=== PATIENT | female | born 1955 | race Caucasian/White ===

== ENCOUNTER → 2017-04-03 10:11 | Outpatient (CLI) | payer MEDICAID ==
[2014-04-19 14:42] VITALS: BMI 39.0
[~2017-04-03 10:11] MED LIST: BUPROPION XL300 MG PO; COUMADIN5 MG PO; CYCLOBENZAPRINE10 MG PO; CYMBALTA60 MG PO; LEVOXYL50 MCG PO; LINZESS145 MCG PO; NORVASC5 MG PO; PRAVACHOL40 MG PO; TOPROL XL100 MG PO; TRAZODONE HCL50 MG PO
== END | disposition home or self-care (01) ==
LOC: D.MRI 10:11
DX: R41.3 Other amnesia (principal)

== ENCOUNTER 2017-04-07 11:44 | Outpatient (CLI) | payer MEDICAID ==
[2014-04-19 14:42] VITALS: BMI 39.0
== END 2017-04-07 11:59 ==
LOC: D.MAMMO 11:44
DX: Z12.31 Encounter for screening mammogram for malignant neoplasm of breast (principal)

== ENCOUNTER 2017-12-24 17:22 | Observation (INO) | payer OTHER ==
[~2017-12-24] VITALS: Ht 154.9 cm; Wt 95.3 kg
--- NOTE | ~2017-12-24 | OP ---
PATIENT NAME: BUFFY ROMERO MEDICAL RECORD: [id number] :59 LOCATION:D.M2 D.2114 ADMISSION DATE:12/24/17 SURGEON: JULIA FISHER MD DATE OF OPERATION: 12/25/2017 PROCEDURES: 1. PTCA stent RCA. 2. Selective coronary angiography. 3. Left ventriculogram. 4. Left heart catheterization. INDICATION: Angina and coronary artery disease. PROCEDURE IN DETAIL: After informed consent was obtained and after detailed explanation of risks, benefits as well as alternative therapies, the patient elected to proceed with angiogram and angioplasty. The right femoral area was prepped and draped in normal sterile fashion. The right femoral artery was cannulated via modified Seldinger technique with placement of a 7-Slovak sheath. All catheters exchanged through this sheath. FINDINGS: Left ventriculogram was performed in standard 30-degree FLORES view, reveals good cardiac wall motion, ejection fraction estimated 60%. SELECTIVE CORONARY ANGIOGRAPHY: 1. Left main is with no significant angiographic disease. 2. Left anterior descending has mild irregularities, no flow-limiting stenosis. 3. The left circumflex has 70-80% stenosis in the mid distal vessel. 4. The right coronary has a chronic total occlusion 100%. PTCA STENT OF THE RIGHT CORONARY ARTERY: We were able to traverse her chronic total occlusion with a Choice PT extra support wire, ballooned this with a 1.5 and 2.5 balloon. Stenting was undertaken going from distal to proximal, 2.25 x 38, and 2.5 x 38, 3.0 x 22 all [place] stents. Result was 0% residual stenosis. OVERALL IMPRESSION: Successful percutaneous transluminal coronary angioplasty stent of the right coronary artery going from 100% chronic total occlusion to 0% residual stenosis. TRANSINT:[id number] Voice Confirmation ID: [id number] DOCUMENT ID: [id number] JULIA FISHER MD at 1202 CC: [id number] DICTATION DATE: 12/25/17913 SHOEMAKER APPRENTICE: 12/25/17 1017 DIS IN 12/25/17 [place] [address]
--- NOTE | ~2017-12-24 | HP ---
PATIENT: BUFFY MASON MEDICAL RECORD: [id number] ACCOUNT: [id number] LOCATION:.[facility]2114 : 59 ADMISSION DATE: 12/24/17 HISTORY AND PHYSICAL EXAMINATION ADMITTING DIAGNOSES: 1. Chest pain. 2. Family history of coronary artery disease. 3. Hypertension. 4. Hyperlipidemia. HISTORY OF PRESENT ILLNESS: Ms. Mason presents with on and off pain all day, worsening, very typical pain compatible with angina, dull and aching pressure, squeezing sensation throughout the anterior chest. Her EKG is with no acute changes. She continues to have the episodes of chest discomfort. REVIEW OF SYSTEMS: The patient reports easy bruising but reports no swollen glands. The patient reports no fever, no night sweats, no significant weight gain, no significant weight loss. No significant exercise tolerance. The patient reports no dry eyes, no irritation, no vision change. Patient reports no difficulty hearing and no ear pain. Patient reports no frequent nose bleeds or nose and sinus problems. Patient reports on arm pain on exertion. No shortness of breath while lying down. No history of heart murmur. Patient reports no cough, no wheezing or coughing up blood. Patient reports no abdominal pain, no vomiting. Normal appetite. No diarrhea and not vomiting blood. No nausea and no constipation. Patient reports no incontinence. No difficulty urinating. No hematuria. No increased frequency. Patient reports no muscle aches. No weakness, no arthralgias, no back pain. No swelling of the extremities. Patient reports no abnormal mole, no jaundice, no rashes. Reports no loss of consciousness. No weakness and no numbness. No seizures, dizziness, or headaches. The patient reports no depression, no sleep disturbance, feeling safe in a relationship and no alcohol abuse. Patient reports on fatigue. Reports no runny nose or sinus pressure. No itching, no hives, and no frequent sneezing. PHYSICAL EXAMINATION: GENERAL APPEARANCE: Well-nourished, well-developed, appears stated age. Level of distress, comfortable. PSYCHIATRIC: Mental status, alert, normal affect. Orientation, oriented to time, place and person. EYES: Lids and conjunctiva, noninjected. No discharge, no pallor. ENT: Lips, teeth, gums, normal dentition. Oropharynx, no cyanosis, no pallor. NECK: Carotid arteries, bilateral normal upstroke, no bruits, no thrills. JUGULAR VEINS: No jugular venous pressure or distention. CERVICAL LYMPH NODES: Nontender, nonenlarged. THYROID: Not enlarged. Nontender. No nodules. LUNGS: Respiratory effort, unlabored. CHEST: Normal curvature. No thoracic deformity. No chest wall tenderness. Percussion, resonant. Auscultation, clear. No wheezes, no rales, no rhonchi. CARDIOVASCULAR: Precordial exam, nondisplaced. No heaves or pericardial thrills. Rate and rhythm, regular. Heart sounds, normal S1, normal S2. No S3, no gallop, no rub. Systolic murmur, not heard. Diastolic murmur, not heard. EXTREMITIES: No cyanosis, no edema. Peripheral pulses, full and equal in all extremities, except as noted. No bruits appreciated. ABDOMEN: Soft, nondistended. Normal aorta. No bruit. Nontender. No masses. HISTORY AND PHYSICAL [id number] BUFFY MASON Liver, nontender, no hepatomegaly. Spleen, nontender, no splenomegaly. MUSCULOSKELETAL: No joint tenderness. No joint swelling. No erythema. NEUROLOGICAL: Normal gait, normal strength, normal tone. SKIN: Warm and dry. OVERAL IMPRESSION: Chest pain compatible with angina in a rapidly escalating fashion, present for the last 2 weeks, but much worse today. Multiple risk factors including a strong family history of coronary artery disease, hypertension, and hyperlipidemia. PLAN: We will proceed with coronary angiography. Further care depends upon findings of the angiography. TRANSINT:[id number] Voice Confirmation ID: [id number] DOCUMENT ID: [id number] JULIA FISHER MD at 1153 CC: [id number] DICTATION DATE: 12/25/17 0208 INTELLIGENCE ANALYST: 12/25/17 0231 ADM IN [facility] [address] [place] [address]
--- NOTE | ~2017-12-24 | DS ---
PATIENT:BUFFY MASON :59 MEDICAL RECORD: [id number] DISCHARGE SUMMARY ADMISSION DATE: 12/24/17 DISCHARGE DATE: DISCHARGE DIAGNOSES: 1. Unstable angina. 2. Coronary artery disease. 3. Percutaneous transluminal coronary angioplasty stent to right coronary artery this admission with concomitant disease of the left circumflex. 4. Hypertension. 5. Hyperlipidemia. HOSPITAL COURSE: Mrs. Mason presents with unstable anginal symptomatology, found to have 2-vessel coronary artery disease of the RCA and left circumflex, underwent successful PTCA stent of the RCA, had an uneventful postoperative course. She was discharged home with the addition of aspirin, Plavix, Pravachol to her medical regimen. Will follow up with [facility] next week for PTCA stent of the left circumflex. TRANSINT:[id number] Voice Confirmation ID: [id number] DOCUMENT ID: [id number] JULIA FISHER MD at 1153 CC: [id number] DICTATION DATE: 12/25/17 09 FINE HAIRER: 12/25/17 1037 ADM IN [place] [id number] [place] [address]
--- NOTE | ~2017-12-24 | HEMODYNAMI ---
PATIENT:BUFFY ROMERO MEDICAL RECORD: [id number] : 59 [id number] ADMISSION DATE: 12/24/17 Generatedon:12/25/20179:11 Patient name: BUFFY ROMERO Patient #: [id number] SSN: DO B: 1955 Date of study: 12/25/2017 Page: Of Hemodynamic Procedure Report Patient Data Patient Demographics Procedure consent was obtained First Name: BUFFY Gender: Female Last Name: NICK : 1955 [facility] Initial: EVELIN Age: 62 year(s) Patient #: [id number] Race: Unknown Additional ID: [id number] Contact details [address]: [address] [place] [address] [address] State: [place] City: [place] Zip code: [address] Admission Admission Data Admission Date: 12/24/2017 Admission Time: 22:17 Admit Source: Other Room #: [facility] Procedure Procedure Types Cath Procedure Diagnostic Procedure Sedation Charges Moderate Sedation up to 15 minutes [facility] w/Coronaries PCI Procedure Coronary Stent Coronary Stent Initial Procedure Description Procedure Date Procedure Date: 12/25/2017 Procedure Start Time: 8:37 Procedure End Time: 9:11 Procedure Staff Name Function Brando Black MD Performing Physician Kim Nicholson RN Nurse Juliano Hood RT Monitor Marv Stringer RT Scrub Procedure Data Cath Procedure Fluoroscopy Diagnostic fluoroscopy Total fluoroscopy Time: time: 10.7 min 10.7 min Diagnostic fluoroscopy Total fluoroscopy dose: 660 dose: 660 mGy mGy Contrast Material Contrast Material Type Amount (ml) Isovue 300 126 Entry Location Entry Primary Successful Side Size Upsize Upsize Entry Closure Burton ccessful Closure Location (Fr) 1 (Fr) 2 (Fr) Remarks Device Remarks Radial Right 6 Fr Mechanical artery Short Compression Femoral Right 7 Fr Exoseal artery Short Estimated blood loss: 10 ml Diagnostic catheters Device Type Used For End Catheter Placement DIAGNOSTIC [place] 110cm 5 Procedure Fr catheter ([id number]) Procedure Complications No complications Procedure Medications Medication Administration Route Dosage Oxygen NC 2 l/min Heparin Flush Bag added to field 2 bags (1000units/500ml NS) Lidocaine 2% added to field 20 Zofran I.V. 4 mg Radial Cocktail added to field 1 syringe (Verapomil 2mg/Nitro 400mcg/Heparin 1500units) Fentanyl I.V. 50 mcg Versed I.V. 1 mg Versed I.V. 0.5 mg Heparin Bolus I.V. 5000 units Fentanyl I.V. 25 mcg Fentanyl I.V. 25 mcg Versed I.V. 0.5 mg Versed I.V. 0.5 mg Versed I.V. 0.5 mg Hemodynamics Rest Heart Rate: 67 (bpm) Pressure Samples Time Site Value (mmHg) Purpose Heart Use Rate(bpm) 8:40 AO 97/67(79) Snapshot 81 Snapshots Pre Cath Intra NCS Post Cath Vital Signs Time Heart Resp SPO2 etCO2 NIBP (mmHg) Rhythm Pain Sedation Rate (ipm) (%) (mmHg) Status Level (bpm) 8:18:51 67 18 98 0 124/83(97) NSR 0 (11) 10(A) , No pain 8:23:14 77 20 99 41.9 128/84(96) NSR 0 (11) 10(A) , No pain 8:27:40 74 18 98 40.4 138/75(115) NSR 0 (11) 10(A) , No pain 8:32:04 87 18 98 31.4 133/88(116) NSR 0 (11) 10(A) , No pain 8:36:32 71 16 96 42.6 126/78(109) NSR 0 (11) 9(A) , No pain 8:40:44 81 18 95 45.6 112/77(106) NSR 0 (11) 9(A) , No pain 8:45:05 86 17 96 41.9 119/72(97) NSR 0 (11) 9(A) , No pain 8:49:27 78 19 95 35.2 109/74(88) NSR 0 (11) 9(A) , No pain 8:53:45 80 19 95 32.9 119/75(105) NSR 0 (11) 9(A) , No pain 8:58:05 85 16 95 45.6 116/81(96) NSR 0 (11) 9(A) , No pain 9:02:23 88 18 96 35.9 131/82(107) NSR 0 (11) 10(A) , No pain 9:06:45 86 6 97 45.6 124/85(104) NSR 0 (11) 10(A) , No pain 9:11:08 79 29 96 44.8 137/81(105) NSR 0 (11) 10(A) , No pain Medications Time Medication Route Dose Verified Delivered Reason Notes Effectiveness by by 8:20:24 Oxygen NC 2 l/min Kim Kim used for Nicholson Nicholson property management specialist RN 8:20:31 Heparin Flush added 2 bags Kim Kim used for Bag to Nicholson Nicholson procedure (1000units/500ml field RN RN NS) 8:20:41 Lidocaine 2% added 20ml Kim Kim used for to vial Nicholson Nicholson procedure field RN RN 8:20:49 Zofran I.V. 4 mg Kim Kim Per physician Lyn Nicholson RN RN 8:21:50 Radial Cocktail added 1 Kim Kim used for (Verapomil to syringe Nicholson Nicholson procedure 2mg/Nitro field RN RN 400mcg/Heparin 1500units) 8:37:38 Fentanyl I.V. 50 mcg Kim Kim for sedation Lyn Nicholson RN RN 8:37:43 Versed I.V. 1 mg Kim Kim for sedation Lyn Nicholson RN RN 8:39:19 Versed I.V. 0.5 mg Kim Kim for sedation Lyn Nicholson RN RN 8:44:14 Heparin Bolus I.V. 5000 Kim Kim for units Nicholson Nicholson anticoagulation RN RN 8:44:18 Fentanyl I.V. 25 mcg Kim Kim for sedation Nicholsoneduardo Nicholson RN RN 8:46:31 Fentanyl I.V. 25 mcg Kim Kim for sedation Lyn Nicholson RN RN 8:46:34 Versed I.V. 0.5 mg Kim Kim for sedation Lyn Nicholson RN RN 8:49:13 Versed I.V. 0.5 mg Kim Kim for sedation Lyn Nicholson RN RN 9:00:37 Versed I.V. 0.5 mg Kim Kim for sedation Lyn Nicholson RN seafood fisherman Log Time Note 7:35:37 Informed consent obtained and on chart 7:35:42 Admit Source: Other 7:35:59 Diagnostic Cath status Elective 7:36:00 Time tracking: Regular hours 7:36:03 Plan of Care:Hemodynamics will remain stable., Cardiac rhythm will remain stable., Comfort level will be maintained., Respiratory function will remain adequate., Patient/ family verbilizes understanding of procedure., Procedure tolerated without complication., Recovers from procedure without complications.. 7:58:21 Marv Stringer RT(R) sent for patient. Start room use. 8:05:51 Patient received from PCU to CCL 3 Alert and oriented. Tansferred to table in Supine position. 8:05:52 Warm blankets applied, and troy hugger turned on for patient comfort. 8:05:53 Correct patient and procedure confirmed by team. 8:05:53 ECG and BP/O2 sat monitors applied to patient. 8:17:37 Vital chart was started 8:17:40 Baseline sample Acquired. 8:17:43 Rhythm: sinus rhythm 8:17:46 Full Disclosure recording started 8:18:02 H&P Date Dictated: 12/24/2017 Within 30 days and on chart.. 8:18:02 Pre-procedure instructions explained to patient. 8:18:02 Pre-op teaching completed and patient verbalized understanding. 8:18:05 Family unavailable. 8:18:06 Patient NPO since Midnight. 8:18:08 Is the patient allergic to Iodine/contrast media? No. 8:18:10 Is patient on blood thinner?Yes 8:18:12 ACC The patient was administered the following blood thiners within the last 24 hours: ACCPlavix 8:18:18 Patient diabetic? No. 8:18:24 Patient not . Patient is over age 55. 8:18:32 Previous problem with sedation/anesthesia? No ? 8:18:36 Snore? Yes 8:18:38 Sleep apnea? No 8:18:39 Deviated septum? No 8:18:40 Opens mouth fully? Yes 8:18:40 Sticks out tongue? Yes 8:18:46 Airway obstruction? No ? 8:18:51 Dentures? No ? 8:19:08 Pre procedure: right dorsailis pedis pulse 1+ Palpable, but thready & weak; easily obliterated 8:19:09 Modified Ervin's test Ulnar < 7 seconds 8:19:12 Patient pain scale 0/10 ?. 8:19:17 IV patent on arrival in left forearm with 0.9% NaCl at [facility]. 8:19:20 Lab results completed and on chart. 8:19:23 Right Radial & Right Groin area was prepped with chlora-prep and draped in sterile fashion 8:19:24 Alarms reviewed by R. N. 8:19:25 Sharps counted by scrub and verified by R.N. 8:20:24 Oxygen 2 l/min NC was administered by Kim Nicholson RN; used for procedure; 8:20:31 Heparin Flush Bag (1000units/500ml NS) 2 bags added to field was administered by Kim Nicholson RN; used for procedure; 8:20:41 Lidocaine 2% 20ml vial added to field was administered by Kim Nicholson RN; used for procedure; 8:20:49 Zofran 4 mg I.V. was administered by Kim Nicholson RN; Per physician; 8:21:50 Radial Cocktail (Verapomil 2mg/Nitro 400mcg/Heparin 1500units) 1 syringe added to field was administered by Kim Nicholson RN; used for procedure; 8:29:35 Use device set Radial Dx or PCI 8:29:39 Tegaderm 4 x 4 (1626W) opened to sterile field. 8:29:40 ACIST Manifold (81760) opened to sterile field. 8:29:40 ACIST Hand Control (59722) opened to sterile field. 8:29:42 ACIST Syringe (52346) opened to sterile field. 8:29:42 Medline Cath Pack ([id number]) opened to sterile field. 8:29:43 Bag Decanter () opened to sterile field. 8:29:43 SHEATH 6FR Slender ([id number]) opened to sterile field. 8:29:44 DIAGNOSTIC WIRE .035 260cm J wire (890710) opened to sterile field. 8:29:44 MBrace Wrist Support ([id number]) opened to sterile field. 8:33:26 --------ALL STOP TIME OUT------ 8:33:26 Final Timeout: patient, procedure, and site verified with staff and physician. All members of the team are in agreement. 8:33:29 Right Radial & Right Groin site verified by team. 8:33:32 Physical assessment completed. ASA score P 2 - A patient with mild systemic disease as per Brando Black MD. 8:33:35 Sedation plan: IV Moderate Sedation Medication:Versed, Fentanyl 8:34:01 Zero performed for pressure channel P1 8:37:38 Procedure started. 8:37:38 Fentanyl 50 mcg I.V. was administered by Kim Nicholson RN; for sedation; 8:37:43 Versed 1 mg I.V. was administered by Kim Nicholson RN; for sedation; 8:37:48 Local anesthetic to right radial artery with Lidocaine 2% by Brando Black MD.INITIAL ACCESS ONLY 8:38:49 A 6 Fr Short sheath was inserted into the Right Radial artery 8:39:19 Versed 0.5 mg I.V. was administered by Kim Nicholson RN; for sedation; 8:39:30 A DIAGNOSTIC [place] 110cm 5 Fr catheter (326926) was advanced over the wire and used for Procedure. 8:40:19 LV angiography performed. 8:40:20 LV gram done using FLORES 8:40:25 EF : 60 % 8:40:29 Injector settings: Ml/sec: 7, Volume: 15, 8:41:14 LCA angiography performed. 8:41:47 RCA angiography performed. 8:41:48 RCA occluded. 8:42:00 Catheter exchanged over wire. 8:42:06 Use device set [facility] PCI 8:43:25 CHOICE PT Extra Support 182cm wire ([id number]) opened to sterile field. 8:43:33 INFLATOR [place]it BasixCompak (YB1647) opened to sterile field. 8:43:46 GUIDE 6FR AR 1.0 SH catheter ([id number]) opened to sterile field. 8:44:03 6 Fr AR 1 SH guide catheter was inserted over the wire 8:44:14 Heparin Bolus 5000 units I.V. was administered by Kim Nicholson RN; for anticoagulation; 8:44:18 Fentanyl 25 mcg I.V. was administered by Kim Nicholson RN; for sedation; 8:44:57 Choice PT XS wire advanced. 8:46:14 Wire removed. unable to cross lesion. 8:46:18 Guide catheter removed. 8:46:31 Fentanyl 25 mcg I.V. was administered by Kim Nicholson RN; for sedation; 8:46:34 Versed 0.5 mg I.V. was administered by Kim Nicholson RN; for sedation; 8:46:34 Local anesthetic to right femoral artery with Lidocaine 2% by Brando Black MD.ADDITIONAL ACCESS 8:46:58 SHEATH 7FR Bitely (DEI441) opened to sterile field. 8:47:53 GUIDE 7FR AR 2.0 SH catheter ([id number]) opened to sterile field. 8:48:03 A 7 Fr Short sheath was inserted into the Right Femoral artery 8:48:09 CHOICE PT Extra Support J 300cm guide wire ([id number]) opened to sterile field. 8:48:20 7 Fr AR 2 SH guide catheter was inserted over the wire 8:49:05 Choice PT XS wire advanced. 8:49:13 Versed 0.5 mg I.V. was administered by Kim Nicholson RN; for sedation; 8:50:37 Wire advanced across lesion. 8:50:50 Inflation number: 1 A EMERGE OTW 1.5 x 15 balloon ([id number]) was prepped and advanced across the Prox RCA, then inflated to 21 [place] for 0:10 (min:sec). 8:51:13 Multiple inflations made at 21 Atms. 8:51:56 Inflation number: 1 The EMERGE OTW 1.5 x 15 balloon ([id number]) was reinflated across the Mid RCA, to 21 [place] for 0:10 (min:sec). 8:52:53 Balloon removed over the wire. 8:54:14 Inflation number: 2 A EUPHORA 2.5 x 30 Balloon ([id number]) was prepped and advanced across the Mid RCA, then inflated to 11 [place] for 0:10 (min:sec). 8:56:02 Multiple inflations made at 15 Atms. 8:56:04 Balloon removed over the wire. 8:57:24 Inflation Number: 1 A ANDREW OTW 2.25 x 38 stent ([id number]) was prepped and advanced across the Dist RCA. The stent was deployed at 11 [place] for 0:10 (min:sec). 8:58:01 Stent catheter was removed intact over wire. 8:59:28 Inflation Number: 3 A ANDREW OTW 2.5 x 38 stent ([id number]) was prepped and advanced across the Mid RCA. The stent was deployed at 11 [place] for 0:10 (min:sec). 9:00:02 Stent catheter was removed intact over wire. 9:00:37 Versed 0.5 mg I.V. was administered by Kim Nicholson RN; for sedation; 9:01:22 Inflation Number: 2 A ANDREW OTW 3.0 x 22 stent ([id number]) was prepped and advanced across the Prox RCA. The stent was deployed at 17 [place] for 0:10 (min:sec). 9:03:45 Stent catheter was removed intact over wire. 9:03:47 Wire removed. 9:03:48 Guide catheter removed. 9:03:51 EXOSEAL 7Fr (EX700) opened to sterile field. 9:04:02 Sheath removed intact; hemostasis achieved with Exoseal to the Right Femoral artery. 9:04:14 Procedure ended.(Physican Out) 9:04:24 TR BAND Standard ([id number]) opened to sterile field. 9:04:35 Fluoroscopy time 10.70 minutes. 9:04:39 Fluoroscopy dose: 660 mGy 9:04:39 Flurop Dose total: 660 9:04:58 Contrast amount:Isovue 300 126ml. 9:04:59 Sharps counted by scrub and verified by R.N. 9:05:09 Sheath removed intact; hemostasis achieved with Mechanical Compression to the Right Radial artery. 9:05:14 TR band inflated with 12cc of air. 9:05:15 Insertion/operative site no bleeding no hematoma. 9:05:18 Post Procedure Pulses reassessed and unchanged 9:05:21 Post-procedure physical assessment completed. ASA score P 2 - A patient with mild systemic disease as per Brando Black MD. 9:05:24 Post procedure rhythm: unchanged. 9:05:27 Estimated blood loss: 10 ml 9:05:28 Post procedure instruction explained to patient.Patient verbalizes understanding. 9:05:28 Patient needs reinforcement of post procedure teaching. 9:06:17 Procedure type changed to Cath procedure, Diagnostic procedure, Sedation Charges, Moderate Sedation up to 15 minutes, LHC, [facility] w/Coronaries, PCI procedure, Coronary Stent, Coronary Stent Initial 9:08:13 Procedure and supply charges have been captured, reviewed, submitted and are correct. 9:08:15 Procedure Complication : No complications 9:11:03 Vital chart was stopped 9:11:04 See physician's report for complete and final results. 9:11:06 Report given to PCU. 9:11:10 Patient transfered to PCU with Bed. 9:11:12 Procedure ended. 9:11:12 Full Disclosure recording stopped 9:11:16 End room use (Document Last) Intervention Summary Intervention Notes Time ActionType Lesion and Equipment Action# Pressure Duration Attributes Used 8:50:50 Inflate Prox RCA EMERGE OTW 1 21 00:10 balloon 1.5 x 15 balloon ([id number]) 8:51:56 Reinflate Mid RCA EMERGE OTW 1 21 00:10 balloon 1.5 x 15 balloon ([id number]) 8:54:14 Inflate Mid RCA EUPHORA 2.5 x 2 11 00:10 balloon 30 Balloon ([id number]) 8:57:24 Place stent Dist RCA ANDREW OTW 2.25 1 11 00:10 x 38 stent ([id number]) 8:59:28 Place stent Mid RCA ANDREW OTW 2.5 3 11 00:10 x 38 stent ([id number]) 9:01:22 Place stent Prox RCA ANDREW OTW 3.0 2 17 00:10 x 22 stent ([id number]) Device Usage Item Name Manufacture Quantity Catalog Number Hospital Part Current M inimal Lot# / Charge Number Stock Stock Serial# Code Tegaderm 4 x 3M 1 1626W [id number] [id number] 316238 5 4 (1626W) ACIST Acist 1 86702 358438 034451 709226 5 Manifold Medical (23170) Systems Inc ACIST Hand Acist 1 46399 195108 844759 578965 5 Control Medical (62608) Systems Inc ACIST Syringe Acist 1 04777 738445 273262 863366 2 0 (69868) Medical Systems Inc Medline Cath Cardinal 1 [id number] 803821 27240 519007 5 Atrica ([id number]) Bag Decanter Microtek 1 2001S 390047 34341 038210 5 (2002S) InishTech Inc. SHEATH 6FR Terumo 1 [id number] 698835 539622 310808 4 0 Slender ([id number]) DIAGNOSTIC [facility] [place] 1 625240 680174 843595 285428 3 0 WIRE .035 260cm J wire (974057) MBrace Wrist Advanced 1 140-0250-00 921781 74028 989612 5 Support Vascular (558638996) Dynamics DIAGNOSTIC Terumo 1 40-5013 296713 180136 024399 5 [place] 110cm 5 Fr catheter (852933) CHOICE PT [place] 1 [id number] 338552 567149 807269 5 Extra Support Scientific 182cm wire (2320411I7) INFLATOR RacerTimes 1 IT6305 065908 299739 648914 1 5 needmade BasixCompak (ZY7898) GUIDE 6FR AR Medtronic 1 [id number] 283265 20117 858272 1 1.0 SH catheter ([id number]) SHEATH 7FR Terumo 1 XWD825 743915 853083 653977 5 Bitely (MXJ007) GUIDE 7FR AR Medtronic 1 [id number] 439922 138513 234207 0 2.0 SH catheter ([id number]) CHOICE PT [place] 1 [id number] 591385 341653 120005 5 Extra Support Scientific J 300cm guide wire (3494072O9) EMERGE OTW [place] 1 [id number] 772159 902103 970168 5 [id number] 1.5 x 15 Scientific balloon ([id number]) EUPHORA 2.5 x Medtronic 1 [id number] 567648 322304 736184 5 [id number] 30 Balloon ([id number]) ANDREW OTW 2.25 Medtronic 1 [id number] 982867 24503 919102 5 [id number] x 38 stent ([id number]) ANDREW OTW 2.5 Medtronic 1 [id number] 399370 59435 368951 5 [id number] x 38 stent ([id number]) ANDREW OTW 3.0 Medtronic 1 [id number] 536361 9343872 258274 5 [id number] x 22 stent ([id number]) EXOSEAL 7Fr Cardinal 1 EX700 368825 971740 802863 5 (EX700) Health TR BAND Terumo 1 [id number] 156993 298959 771318 4 0 Standard ([id number]) Signature Audit [place] Stage Time Signature Unsigned Intra-Procedure 12/25/2017 Juliano Hood 9:11:33 AM RT(R) Signatures Monitor : Juliano Hood RT Signature : Date : Time : [place] [id number] [facility] [place] [address]
[2017-12-24 18:48] LABS: BASOPHILS 0.1 % (0-2); EOSINOPHILS 2.1 % (0-7); HEMATOCRIT 39.3 % (36.0-48.0); IMMATURE GRANULOCYTES 0.5 % (0-5); LYMPHOCYTES 28.5 % (15-50); MCH 27.8 pg (26.0-34.0); MCHC 33.1 g/dL (31.0-37.0); MCV 84.2 fL (80.0-100.0); MEAN PLATELET VOLUME 9.4 fL (7.4-10.4); MONOCYTES 9.2 % (2-11); NEUTROPHILS 59.6 % (40-80); PLATELET COUNT 196 10x3/uL (130-400); RBC 4.67 10x6/uL (4.00-5.40); RDW 13.5 % (11.5-14.5); WBC 8.2 10x3/uL (4.8-10.8)
[2017-12-24 19:08] LABS: APTT 27.4 SECONDS (22.8-39.4)
[2017-12-24 19:12] LABS: ALBUMIN 3.5 g/dL (3.4-5.0); ALKALINE PHOSPHATASE 101 U/L (46-116); ALT (SGPT) 29 U/L (10-68); BILIRUBIN - TOTAL 0.34 mg/dL (0.2-1.3); CALC OSMOLALITY 277 mosm/kg (275-300); CALCIUM 8.8 mg/dL (8.5-10.1); CARBON DIOXIDE 27.4 mmol/L (21.0-32.0); CHLORIDE - SERUM 103 mmol/L (98-107); CREATININE - SERUM 0.7 mg/dL (0.6-1.3); GLUCOSE 87 mg/dL (74-106); POTASSIUM - SERUM 3.6 mmol/L (3.5-5.1); PROTEIN - SERUM 7.1 g/dL (6.4-8.2); SODIUM 140 mmol/L (136-145); UREA NITROGEN 13 mg/dL (7-18); eGFR NON AFRICAN AMERICAN 90 mL/min (90-120)
[2017-12-24 19:21] LABS: CHOL - HDL RATIO 4.5 ratio (2.3-4.1); CHOLESTEROL, TOTAL 198 mg/dL (0-200); CKMB 0.7 U/L (0.0-3.6); CREATINE KINASE 80 UL (21-215); HDL CHOLESTEROL 44 mg/dL (32-96); LDL CHOLESTEROL 130 mg/dL (0-100); TRIGLYCERIDE 121 mg/dL (30-200)
[2017-12-24 19:22] LABS: INR 1.04 (0.85-1.17); PROTIME 13.2 SECONDS (11.6-15.0)
[2017-12-24 19:23] LABS: TROPONIN-I < 0.017 ng/mL (0.000-0.060)
[2017-12-24 19:24] LABS: D-DIMER-QUANTITATIVE < 0.27 ug/mLFEU (0.20-0.54)
[2017-12-24 22:39] LABS: APPEARANCE CLEAR (CLEAR); BILIRUBIN NEGATIVE (NEGATIVE); COLOR YELLOW (YELLOW); GLUCOSE NEGATIVE (NEGATIVE); KETONE NEGATIVE (NEGATIVE); NITRITE NEGATIVE (NEGATIVE); PROTEIN NEGATIVE (NEGATIVE); SPECIFIC GRAVITY 1.005 (1.005-1.020); UROBILINOGEN NORMAL (NORMAL)
[2017-12-24] MEDS ORDERED: ELIQUIS2.5 MG PO (23:08)
[2017-12-24 23:09] LABS: CKMB 0.7 U/L (0.0-3.6); CREATINE KINASE 73 UL (21-215); TROPONIN-I < 0.017 ng/mL (0.000-0.060)
[2017-12-25 03:31] VITALS: Ht 154.9 cm; Wt 95.3 kg
[2017-12-25 04:00] VITALS: BP 114/64
[2017-12-25 05:10] LABS: BASOPHILS 0.3 % (0-2); HEMATOCRIT 37.4 % (36.0-48.0); HEMOGLOBIN 12.1 g/dL (12-16); IMMATURE GRANULOCYTES 0.6 % (0-5); LYMPHOCYTES 30.6 % (15-50); MCH 27.5 pg (26.0-34.0); MCHC 32.4 g/dL (31.0-37.0); MEAN PLATELET VOLUME 9.6 fL (7.4-10.4); MONOCYTES 11.6 % (2-11); NEUTROPHILS 54.9 % (40-80); PLATELET COUNT 175 10x3/uL (130-400); RDW 13.6 % (11.5-14.5)
[2017-12-25 05:42] LABS: ALBUMIN 2.9 g/dL (3.4-5.0); ALKALINE PHOSPHATASE 89 U/L (46-116); CALC OSMOLALITY 282 mosm/kg (275-300); CALCIUM 7.9 mg/dL (8.5-10.1); CARBON DIOXIDE 27.4 mmol/L (21.0-32.0); CHLORIDE - SERUM 105 mmol/L (98-107); CKMB 0.6 U/L (0.0-3.6); CREATINE KINASE 61 UL (21-215); CREATININE - SERUM 0.7 mg/dL (0.6-1.3); GLUCOSE 125 mg/dL (74-106); POTASSIUM - SERUM 3.6 mmol/L (3.5-5.1); PROTEIN - SERUM 6.2 g/dL (6.4-8.2); SODIUM 141 mmol/L (136-145); TROPONIN-I < 0.017 ng/mL (0.000-0.060); UREA NITROGEN 15 mg/dL (7-18); eGFR NON AFRICAN AMERICAN 90 mL/min (90-120)
[2017-12-25 05:43] LABS: ALT (SGPT) 46 U/L (10-68)
[2017-12-25 08:26] VITALS: BP 147/88
[2017-12-25] MEDS ORDERED: PLAVIX75 MG PO (13:10)
[2017-12-25] MEDS ORDERED: PRAVACHOL40 MG PO (13:11)
== END 2017-12-25 14:14 | disposition home or self-care (01) ==
LOC: D.ER 17:22 → OBSVTIME 22:17 → D.EDHOLD 22:17 → D.M2 22:17 → D.EDHOLD 22:17 → D.M2 22:47
PROVIDERS: Emergency Medicine; Family Medicine; Physician Assistant Medical
DX: I25.110 Atherosclerotic heart disease of native coronary artery with unstable angina pectoris (principal); I25.82 Chronic total occlusion of coronary artery; I10 Essential (primary) hypertension; E78.5 Hyperlipidemia, unspecified

== ENCOUNTER 2017-12-29 08:26 | Outpatient (CLI) | payer OTHER ==
[~2017-12-29] VITALS: Ht 154.9 cm; Wt 95.0 kg
--- NOTE | ~2017-12-29 | HP ---
PATIENT: BUFFY MASON MEDICAL RECORD: [id number] ACCOUNT: [id number] LOCATION:[facility] : 59 ADMISSION DATE: 12/29/17 HISTORY AND PHYSICAL EXAMINATION ADMITTING DIAGNOSES: 1. Angina. 2. Coronary artery disease. 3. Recent percutaneous transluminal coronary angioplasty stent of the right coronary artery with concomitant disease of the left circumflex. 4. Hypertension. 5. Hyperlipidemia. HISTORY OF PRESENT ILLNESS: Ms. Mason presents with unstable anginal symptomatology, found to have 2-vessel coronary artery disease of the RCA and circumflex, underwent successful PTCA stent of the RCA. She is now brought back for PTCA stent of the circumflex in a staged fashion. PHYSICAL EXAMINATION: GENERAL APPEARANCE: Well-nourished, well-developed, appears stated age. Level of distress, comfortable. PSYCHIATRIC: Mental status, alert, normal affect. Orientation, oriented to time, place and person. EYES: Lids and conjunctiva, noninjected. No discharge, no pallor. ENT: Lips, teeth, gums, normal dentition. Oropharynx, no cyanosis, no pallor. NECK: Carotid arteries, bilateral normal upstroke, no bruits, no thrills. JUGULAR VEINS: No jugular venous pressure or distention. CERVICAL LYMPH NODES: Nontender, nonenlarged. THYROID: Not enlarged. Nontender. No nodules. LUNGS: Respiratory effort, unlabored. CHEST: Normal curvature. No thoracic deformity. No chest wall tenderness. Percussion, resonant. Auscultation, clear. No wheezes, no rales, no rhonchi. CARDIOVASCULAR: Precordial exam, nondisplaced. No heaves or pericardial thrills. Rate and rhythm, regular. Heart sounds, normal S1, normal S2. No S3, no gallop, no rub. Systolic murmur, not heard. Diastolic murmur, not heard. EXTREMITIES: No cyanosis, no edema. Peripheral pulses, full and equal in all extremities, except as noted. No bruits appreciated. ABDOMEN: Soft, nondistended. Normal aorta. No bruit. Nontender. No masses. Liver, nontender, no hepatomegaly. Spleen, nontender, no splenomegaly. MUSCULOSKELETAL: No joint tenderness. No joint swelling. No erythema. NEUROLOGICAL: Normal gait, normal strength, normal tone. SKIN: Warm and dry. REVIEW OF SYSTEMS: The patient reports easy bruising but reports no swollen glands. The patient reports no fever, no night sweats, no significant weight gain, no significant weight loss. No significant exercise tolerance. The patient reports no dry eyes, no irritation, no vision change. Patient reports no difficulty hearing and no ear pain. Patient reports no frequent nose bleeds or nose and sinus problems. Patient reports on arm pain on exertion. No shortness of breath while lying down. No history of heart murmur. Patient reports no cough, no wheezing or coughing up blood. Patient reports no abdominal pain, no vomiting. Normal appetite. No diarrhea and not vomiting blood. No nausea and no constipation. Patient reports no incontinence. No difficulty urinating. No hematuria. No increased frequency. Patient reports no muscle aches. No weakness, no arthralgias, no back pain. No swelling of the HISTORY AND PHYSICAL [id number] NICK,BUFFY EVELIN extremities. Patient reports no abnormal mole, no jaundice, no rashes. Reports no loss of consciousness. No weakness and no numbness. No seizures, dizziness, or headaches. The patient reports no depression, no sleep disturbance, feeling safe in a relationship and no alcohol abuse. Patient reports on fatigue. Reports no runny nose or sinus pressure. No itching, no hives, and no frequent sneezing. OVERALL IMPRESSION: Anginal symptomatology with significant disease of the circumflex. We will proceed with percutaneous transluminal coronary angioplasty stent of the left circumflex. TRANSINT:[id number] Voice Confirmation ID: [id number] DOCUMENT ID: [id number] JULIA FISHER MD at 1202 CC: [id number] DICTATION DATE: 12/29/17913 ROLL TESTER: 12/29/17 0938 DEP CLI 12/29/17 [place] [id number] [place] [id number]
--- NOTE | ~2017-12-29 | HEMODYNAMI ---
PATIENT:BUFFY ROMERO MEDICAL RECORD: [id number] : 59 LOCATION:[facility] ADMISSION DATE: 12/29/17 Generatedon:12/29/201710:11 Patient name: BUFFY ROMERO Patient #: [id number] SSN: DO B: 1955 Date of study: 12/29/2017 Page: Of Hemodynamic Procedure Report Patient Data Patient Demographics Procedure consent was obtained First Name: BUFFY Gender: Female Last Name: NICK : 1955 Middle Initial: EVELIN Age: 62 year(s) Patient #: [id number] Race: Unknown Additional ID: [id number] Contact details [address]: [address] [place] [address] [address] State: [place] City: [place] Zip code: [address] Past Medical History Allergies: No known allergies Admission Admission Data Admission Date: 12/29/2017 Admission Time: 8:26 Lab Results Lab Result Date: 12/29/2017 Lab Result Time: 0:00 Biochemistry Name Units Result Min Max BUN mg/dl 16 --(---*)-- 7 18 Creatinine mg/dl 0.8 --(-*--)-- 0.6 1.3 CBC Name Units Result Min Max Hemoglobin g/dl 13.3 -*(----)-- 13.5 17.5 Procedure Procedure Types Cath Procedure PCI Procedure Coronary Stent Coronary Stent Initial Procedure Description Procedure Date Procedure Date: 12/29/2017 Procedure Start Time: 10:00 Procedure End Time: 10:10 Procedure Staff Name Function Tonya Taylor RT Scrub Brando Black MD Performing Physician Piper Torres RT Monitor Palak Jerry RN Nurse Procedure Data Cath Procedure Fluoroscopy Diagnostic fluoroscopy Total fluoroscopy Time: 1.7 time: 1.7 min min Diagnostic fluoroscopy Total fluoroscopy dose: 309 dose: 309 mGy mGy Contrast Material Contrast Material Type Amount (ml) Isovue 300 39 Entry Location Entry Primary Successful Side Size Upsize Upsize Entry Closure Burton ccessful Closure Location (Fr) 1 (Fr) 2 (Fr) Remarks Device Remarks Radial Right 6 Fr Mechanical artery Short Compression Estimated blood loss: 10 ml Procedure Complications No complications Procedure Medications Medication Administration Route Dosage Zofran I.V. 4 mg 0.9% NaCl I.V. 100 ml/hr Oxygen NC 2 l/min Lidocaine 2% added to field 20 Heparin Flush Bag added to field 2 bags (1000units/500ml NS) Versed I.V. 1 mg Fentanyl I.V. 50 mcg Versed I.V. 1 mg Fentanyl I.V. 50 mcg Radial Cocktail I.A. 1 syringe (Verapomil 2mg/Nitro 400mcg/Heparin 1500units) Heparin Bolus I.V. 4000 units Versed I.V. 1 mg Fentanyl I.V. 50 mcg Plavix P.O. 75 mg Hemodynamics Rest HGB: 13.3 (g/dl) Heart Rate: 64 (bpm) Snapshots Pre Cath Intra NCS Post Cath Vital Signs Time Heart Resp SPO2 etCO2 NIBP (mmHg) Rhythm Pain Sedation Rate (ipm) (%) (mmHg) Status Level (bpm) 9:39:31 66 14 98 128/75(108) NSR 0 (11) 10(A) , No pain 9:44:15 66 18 97 125/75(107) NSR 0 (11) 10(A) , No pain 9:49:02 61 12 97 37.1 117/69(94) NSR 0 (11) 10(A) , No pain 9:53:45 58 20 97 11.3 114/62(85) NSR 0 (11) 10(A) , No pain 9:59:15 62 17 96 43.2 100/70(82) NSR 0 (11) 9(A) , No pain 10:03:55 59 17 93 43.2 101/59(79) NSR 0 (11) 9(A) , No pain 10:08:40 67 17 96 10.6 89/51(80) NSR 0 (11) 10(A) , No pain Medications Time Medication Route Dose Verified Delivered Reason Note s Effectiveness by by 9:45:47 Zofran I.V. 4 mg Brando Cid Per physician Sofia Jerry RN 9:49:37 0.9% NaCl I.V. 100 Brando Cid Per physician ml/hr Sofia Jerry RN 9:49:48 Oxygen NC 2 l/min Brando Buffie used for Sofia Jerry RN procedure 9:49:55 Lidocaine 2% added 20ml Brandooneyda Michaels for local to vial Sofia Black MD anesthetic field 9:50:02 Heparin Flush added 2 bags Brando Michaels used for Bag to Sofia Black MD procedure (1000units/500ml field NS) 9:56:32 Versed I.V. 1 mg Brando Cid for sedation Sofia Jerry RN 9:56:38 Fentanyl I.V. 50 mcg Brando Cid for sedation Sofia Jerry RN 10:00:07 Versed I.V. 1 mg Brando Cid for sedation Sofia Jerry RN 10:00:10 Fentanyl I.V. 50 mcg Brando Cid for sedation Sofia Jerry RN 10:01:11 Radial Cocktail I.A. 1 Brando Michaels for (Verapomil syringe Sofia Black MD vasodilation 2mg/Nitro 400mcg/Heparin 1500units) 10:02:37 Heparin Bolus I.V. 4000 Brando Cid for veri fied units Sofia Jerry RN anticoagulation with dr black 10:06:54 Versed I.V. 1 mg Brando Cid for sedation Sofia Jerry RN 10:06:57 Fentanyl I.V. 50 mcg Brando Cid for sedation Sofia Jerry RN 10:10:26 Plavix P.O. 75 mg Brando Cid for Sofia Jerry RN antiplatelet therapy Procedure Log Time Note 9:26:05 Tonya Counts RT(R) sent for patient. Start room use. 9:26:30 Signed procedure consent form obtained from patient. 9:26:33 Time tracking: Regular hours 9:26:37 Plan of Care:Hemodynamics will remain stable., Cardiac rhythm will remain stable., Comfort level will be maintained., Respiratory function will remain adequate., Patient/ family verbilizes understanding of procedure., Procedure tolerated without complication., Recovers from procedure without complications.. 9:26:49 Patient received from Pre/Post Procedure Room to CCL 1 Alert and oriented. Tansferred to table in Supine position. 9:26:50 Warm blankets applied, and troy hugger turned on for patient comfort. 9:26:51 Correct patient and procedure confirmed by team. 9:26:51 ECG and BP/O2 sat monitors applied to patient. 9:38:32 Vital chart was started 9:38:33 Baseline sample Acquired. 9:38:36 Rhythm: sinus bradycardia 9:38:37 Full Disclosure recording started 9:38:44 H&P Date Dictated: 12/29/2017 New H&P dictated by physician.. 9:38:45 Pre-procedure instructions explained to patient. 9:38:45 Pre-op teaching completed and patient verbalized understanding. 9:38:48 Family in patients room. 9:38:49 Patient NPO since Midnight. 9:38:54 Patient allergic to No known allergies 9:38:57 Is the patient allergic to Iodine/contrast media? No. 9:38:58 Is patient on blood thinner?Yes 9:39:03 ACC The patient was administered the following blood thiners within the last 24 hours: ACCPlavix, Eliquis 9:39:05 Patient diabetic? No. 9:39:08 Patient not . Patient is over age 55. 9:39:13 Previous problem with sedation/anesthesia? Yes NAUSEA 9:39:15 Snore? Yes 9:39:16 Sleep apnea? No 9:39:17 Deviated septum? No 9:39:18 Opens mouth fully? Yes 9:39:18 Sticks out tongue? Yes 9:39:20 Airway obstruction? No ? 9:39:22 Dentures? No ? 9:39:26 Pre procedure: left dorsailis pedis pulse 2+ Normal; easily identifiable; not easily obliterated 9:39:28 Modified Ervin's test Ulnar < 7 seconds 9:39:33 Patient pain scale 2/10 ?. 9:39:38 IV patent on arrival in left antecubital with 0.9% NaCl at O. 9:40:01 Lab Result : BUN 16 mg/dl 9:40:01 Lab Result : Creatinine 0.8 mg/dl 9:40:01 Lab Result : Hemoglobin 13.3 g/dl 9:40:05 Lab results completed and on chart. 9:40:11 Right Radial & Left Groin area was prepped with chlora-prep and draped in sterile fashion 9:40:11 Alarms reviewed by RTeodoro NTeodoro 9:40:12 Sharps counted by scrub and verified by R.N. 9:45:47 Zofran 4 mg I.V. was administered by Palak Jerry RN; Per physician; 9:48:58 Use device set Radial Dx or PCI 9:49:02 ACIST Syringe (67837) opened to sterile field. 9:49:04 Bag Decanter (2002S) opened to sterile field. 9:49:05 ACIST Manifold (39222) opened to sterile field. 9:49:05 Tegaderm 4 x 4 (1626W) opened to sterile field. 9:49:06 ACIST Hand Control (62313) opened to sterile field. 9:49:12 Medline Cath Pack ([id number]) opened to sterile field. 9:49:12 SHEATH 6FR Slender ([id number]) opened to sterile field. 9:49:13 DIAGNOSTIC WIRE .035 260cm J wire (458035) opened to sterile field. 9:49:21 INFLATOR Merit BasixCompak (AO0367) opened to sterile field. 9:49:37 0.9% NaCl 100 ml/hr I.V. was administered by Palak Jerry RN; Per physician; 9:49:48 Oxygen 2 l/min NC was administered by Palak Jerry RN; used for procedure; 9:49:55 Lidocaine 2% 20ml vial added to field was administered by Brando Black MD; for local anesthetic; 9:50:02 Heparin Flush Bag (1000units/500ml NS) 2 bags added to field was administered by Brando Black MD; used for procedure; 9:52:05 Zero performed for pressure channel P1 9:56:00 --------ALL STOP TIME OUT------ 9:56:00 Final Timeout: patient, procedure, and site verified with staff and physician. All members of the team are in agreement. 9:56:04 Right Radial & Left Groin site verified by team. 9:56:07 Physical assessment completed. ASA score P 2 - A patient with mild systemic disease as per Brando Black MD. 9:56:10 Sedation plan: IV Moderate Sedation Medication:Versed, Fentanyl 9:56:32 Versed 1 mg I.V. was administered by Palak Jerry RN; for sedation; 9:56:38 Fentanyl 50 mcg I.V. was administered by Palak Jerry RN; for sedation; 9:58:01 GUIDE 6FR XB 3.5 catheter ([id number]) opened to sterile field. 9:58:02 GUIDE 6FR XB 3.5 catheter ([id number]) opened to sterile field. 9:58:26 XB 3.5 DAMAGED OUT OF PACKAGE 9:59:46 Procedure started. 10:00:07 Versed 1 mg I.V. was administered by Palak Jerry RN; for sedation; 10:00:10 Fentanyl 50 mcg I.V. was administered by Palak Jerry RN; for sedation; 10:00:19 Local anesthetic to right radial artery with Lidocaine 2% by Brando Black MD.INITIAL ACCESS ONLY 10:00:49 A 6 Fr Short sheath was inserted into the Right Radial artery 10:01:11 Radial Cocktail (Verapomil 2mg/Nitro 400mcg/Heparin 1500units) 1 syringe I.A. was administered by Brando Black MD; for vasodilation; 10:01:45 CHOICE PT Extra Support 182cm wire ([id number]) opened to sterile field. 10:01:57 6 Fr XB 3.5 guide catheter was inserted over the wire 10:02:37 Heparin Bolus 4000 units I.V. was administered by Palak Jerry RN; for anticoagulation; verified with dr black 10:03:57 CHOICE ES 182 wire advanced. 10:04:57 Inflation Number: 1 A ANDREW RX 2.5 x 18 stent ([id number]) was prepped and advanced across the Dist CX. The stent was deployed at 11 [place] for 0:10 (min:sec). 10:05:49 Stent catheter was removed intact over wire. 10:05:50 Guide catheter removed. 10:05:51 Wire removed. 10:05:55 TR BAND Standard ([id number]) opened to sterile field. 10:06:54 Versed 1 mg I.V. was administered by Palak Jerry RN; for sedation; 10:06:57 Fentanyl 50 mcg I.V. was administered by Palak Jerry RN; for sedation; 10:07:08 Sheath removed intact; hemostasis achieved with Mechanical Compression to the Right Radial artery. 10:08:08 Procedure ended.(Physican Out) 10:08:21 Fluoroscopy time 01.70 minutes. 10:08:24 Flurop Dose total: 309 10:08:24 Fluoroscopy dose: 309 mGy 10:08:27 Contrast amount:Isovue 300 39ml. 10:08:28 Sharps counted by scrub and verified by R.N. 10:08:32 TR band inflated with 11cc of air. 10:08:38 Post procedure: left dorsailis pedis pulse 2+ Normal; easily identifiable; not easily obliterated. 10:08:41 Post-procedure physical assessment completed. ASA score P 2 - A patient with mild systemic disease as per Brando Black MD. 10:08:43 Post procedure rhythm: unchanged. 10:08:45 Estimated blood loss: 10 ml 10:08:46 Post procedure instruction explained to patient.Patient verbalizes understanding. 10:08:47 Patient needs reinforcement of post procedure teaching. 10:09:57 Procedure and supply charges have been captured, reviewed, submitted and are correct. 10:09:59 Procedure Complication : No complications 10:10:01 Vital chart was stopped 10:10:01 See physician's report for complete and final results. 10:10:06 Report given to Pre/Post Procedure Room. 10:10:09 Patient transfered to Pre/Post Procedure Room with Bed. 10:10:11 Procedure ended. 10:10:11 Full Disclosure recording stopped 10:10:15 End room use (Document Last) 10:10:26 Plavix 75 mg P.O. was administered by Palak Jerry RN; for antiplatelet therapy; Intervention Summary Intervention Notes Time ActionType Lesion and Equipment Used Action# Pressure Duration Attributes 10:04:57 Place stent Dist CX ANDREW RX 2.5 x 1 11 00:10 18 stent ([id number]) Device Usage Item Name Manufacture Quantity Catalog Number Hospital Part Current M inimal Lot# / Charge Number Stock Stock Serial# Code ACIST Syringe Acist 1 81495 053221 324739 493551 2 0 (74563) Medical Systems Inc Bag Decanter Microtek 1 2001S 234676 73985 611689 5 () Medical Inc. ACIST Manifold Acist 1 17787 046708 332725 201065 5 (49531) Medical Systems Inc Tegaderm 4 x 4 3M 1 1626W 153486 914526 165146 5 (1626W) ACIST Hand Acist 1 52164 181209 758327 431101 5 Control Medical (36837) Systems Inc Medline Cath Cardinal 1 [id number] 941070 49720 489057 5 Pack Health ([id number]) SHEATH 6FR Terumo 1 [id number] 788703 621522 039832 4 0 Slender ([id number]) DIAGNOSTIC [facility] [place] 1 245242 350041 749573 042788 3 0 WIRE .035 260cm J wire (754034) INFLATOR Merit Merit 1 KH2899 967900 065833 743553 1 5 Cloudius Systems (OV9340) GUIDE 6FR XB Cardinal 2 [id number] 694384 180067 982373 2 3.5 catheter Health (29761973) CHOICE PT [place] 1 [id number] 415058 729580 787346 5 Extra Support Scientific 182cm wire ([id number]) ANDREW RX 2.5 x Medtronic 1 [id number] 928079 8846297 662218 5 [id number] 18 stent ([id number]) TR BAND Terumo 1 [id number] 578070 178465 160988 4 0 Standard ([id number]) Signature Audit [place] Stage Time Signature Unsigned Intra-Procedure 12/29/2017 Piper Torres 10:11:22 AM RT(R) Signatures Monitor : Piper Torres Signature : RT Date : Time : [place] [id number] [place] [address]
--- NOTE | ~2017-12-29 | OP ---
PATIENT NAME: BUFFY ROMERO MEDICAL RECORD: [id number] :59 LOCATION:D.[facility] ADMISSION DATE: SURGEON: JULIA FISHER MD DATE OF OPERATION: 12/29/2017 PROCEDURES: 1. PTCA stent left circumflex. 2. Selective coronary angiography. INDICATION: Angina and coronary artery disease. PROCEDURE IN DETAIL: After informed consent was obtained and after a detailed explanation of risks, benefits as well as alternative therapies, the patient elected to proceed with angiogram and angioplasty. The right radial area was prepped and draped in normal sterile fashion. The right radial artery was cannulated via modified Seldinger technique with placement of 6-Uzbek sheath. All catheters exchanged through this sheath. FINDINGS: The left circumflex has 95% stenosis addressed with a 2.5 x 18 mm Bhupinder stent. Result was 0% residual stenosis. OVERALL IMPRESSION: Successful percutaneous transluminal coronary angioplasty stent of the left circumflex going from 95% initial stenosis to 0% residual. TRANSINT:[id number] Voice Confirmation ID: [id number] DOCUMENT ID: [id number] JULIA FISHER MD at 1202 CC: [id number] DICTATION DATE: 12/29/17 1009 TYPEWRITER ASSEMBLY AND PARTS INSPECTOR: 12/29/17 1028 DEP CLI 12/29/17 [place] [id number] [place] [address]
[~2017-12-29 08:26] MED LIST changes: +ELIQUIS2.5 MG PO; +PLAVIX75 MG PO
[2017-12-29 08:59] LABS: BASOPHILS 0.2 % (0-2); EOSINOPHILS 3.4 % (0-7); HEMATOCRIT 40.6 % (36.0-48.0); HEMOGLOBIN 13.3 g/dL (12-16); IMMATURE GRANULOCYTES 0.8 % (0-5); LYMPHOCYTES 30.3 % (15-50); MCH 27.9 pg (26.0-34.0); MCHC 32.8 g/dL (31.0-37.0); MCV 85.3 fL (80.0-100.0); MEAN PLATELET VOLUME 9.3 fL (7.4-10.4); MONOCYTES 8.4 % (2-11); NEUTROPHILS 56.9 % (40-80); PLATELET COUNT 173 10x3/uL (130-400); RBC 4.76 10x6/uL (4.00-5.40); RDW 13.5 % (11.5-14.5); WBC 5.2 10x3/uL (4.8-10.8)
[2017-12-29 09:10] LABS: CALC OSMOLALITY 279 mosm/kg (275-300); CALCIUM 8.8 mg/dL (8.5-10.1); CARBON DIOXIDE 29.1 mmol/L (21.0-32.0); CHLORIDE - SERUM 103 mmol/L (98-107); CREATININE - SERUM 0.8 mg/dL (0.6-1.3); GLUCOSE 107 mg/dL (74-106); POTASSIUM - SERUM 3.8 mmol/L (3.5-5.1); SODIUM 140 mmol/L (136-145); UREA NITROGEN 16 mg/dL (7-18); eGFR NON AFRICAN AMERICAN 77 mL/min (90-120)
[2017-12-29 09:15] VITALS: BP 144/80; Ht 154.9 cm; Wt 95.0 kg
== END 2017-12-29 14:00 | disposition home or self-care (01) ==
LOC: D.CATH 08:26
PROVIDERS: Internal Medicine Interventional Cardiology
DX: I25.119 Atherosclerotic heart disease of native coronary artery with unspecified angina pectoris (principal); I10 Essential (primary) hypertension; E78.5 Hyperlipidemia, unspecified; Z01.812 Encounter for preprocedural laboratory examination

== ENCOUNTER 2018-06-05 09:53 | Outpatient (CLI) | payer OTHER ==
[~2018-06-05] VITALS: Ht 154.9 cm; Wt 93.2 kg
--- NOTE | ~2018-06-05 | HEMODYNAMI ---
PATIENT:BUFFY ROMERO MEDICAL RECORD: [id number] : 59 LOCATION:[facility] [address] [id number] ADMISSION DATE: 06/05/18 Generatedon:06/06/201810:51 Patient name: BUFFY ROMERO Patient #: [id number] SSN: DO B: 1955 Date of study: 06/06/2018 Page: Of Hemodynamic Procedure Report Patient Data Patient Demographics Procedure consent was obtained First Name: BUFFY Gender: Female Last Name: NICK : 1955 [facility] Initial: EVELIN Age: 62 year(s) Patient #: [id number] Race: Unknown Additional ID: [id number] Contact details Address: [address] [place] [address] COURT State: [place] City: [place] Zip code: [address] Past Medical History Allergies: No known allergies Admission Admission Data Admission Date: 06/05/2018 Admission Time: 9:53 Room #: 2105 Procedure Procedure Types Cath Procedure Diagnostic Procedure LHC C w/Coronaries FFR/IVUS Intra-Coronary IVUS Initial Sedation Charges Moderate Sedation up to 15 minutes PCI Procedure Coronary Stent Coronary Stent Initial Procedure Description Procedure Date Procedure Date: 06/06/2018 Procedure Start Time: 10:26 Procedure End Time: 10:48 Procedure Staff Name Function Brando Black MD Performing Physician Tonya Taylor RT Monitor Alphonso Garcia RN Nurse Piper Torres RT Scrub Procedure Data Cath Procedure Fluoroscopy Diagnostic fluoroscopy Total fluoroscopy Time: 4 time: 4 min min Diagnostic fluoroscopy Total fluoroscopy dose: 665 dose: 665 mGy mGy Contrast Material Contrast Material Type Amount (ml) Isovue 300 74 Entry Location Entry Primary Successful Side Size Upsize Upsize Entry Closure Burton ccessful Closure Location (Fr) 1 (Fr) 2 (Fr) Remarks Device Remarks Radial Right 6 Fr Unsuccessful artery Short puncture. Femoral Right 5 Fr 6 Fr Exoseal artery Short Estimated blood loss: 10 ml Diagnostic catheters Device Type Used For End Catheter Placement MULTIPACK Pigtail 5 Fr LV Angiography catheter MULTIPACK JL 4.0 5Fr Left Coronary catheter Angiography MULTIPACK 3DRC 5Fr Right Coronary catheter Angiography Procedure Complications No complications Procedure Medications Medication Administration Route Dosage Oxygen etCO2 Nasal cannula 2 l/min Heparin Flush Bag added to field 2 bags (1000units/500ml NS) 0.9% NaCl I.V. 100 ml/hr Plavix P.O. 300 mg Zofran I.V. 4 mg Radial Cocktail added to field 1 syringe (Verapomil 2mg/Nitro 400mcg/Heparin 1500units) Fentanyl I.V. 50 mcg Versed I.V. 1 mg Fentanyl I.V. 50 mcg Versed I.V. 1 mg Heparin Bolus I.V. 4000 units Hemodynamics Rest Heart Rate: 78 (bpm) Snapshots Pre Cath Intra NCS Post Cath Vital Signs Time Heart Resp SPO2 etCO2 NIBP (mmHg) Rhythm Pain Sedation Rate (ipm) (%) (mmHg) Status Level (bpm) 10:21:34 82 17 98 0 140/82(121) NSR 0 (11) 10(A) , No pain 10:26:25 81 16 96 43.3 139/82(110) NSR 0 (11) 10(A) , No pain 10:31:16 83 16 96 32.9 142/82(122) NSR 0 (11) 9(A) , No pain 10:36:07 89 17 97 35.1 146/80(121) NSR 0 (11) 9(A) , No pain 10:40:58 93 16 98 35.1 142/81(102) NSR 0 (11) 9(A) , No pain 10:45:46 95 17 99 28.4 145/93(110) NSR 0 (11) 9(A) , No pain Medications Time Medication Route Dose Verified Delivered Reason Not es Effectiveness by by 10:20:19 Oxygen etCO2 2 l/min Brando Werner Per physician Nasal Sofia Garcia RN cannula 10:20:31 Heparin Flush added 2 bags Brando Werner used for Bag to Sofia Garcia optician apprentice (1000units/500ml field NS) 10:20:39 0.9% NaCl I.V. 100 Brando Werner Per physician ml/hr Sofia Garcia RN 10:20:48 Plavix P.O. 300 mg Brando Werner for Sofia Garcia RN antiplatelet therapy 10:21:03 Zofran I.V. 4 mg Brando Werner Per physician Sofia Garcia RN 10:21:12 Radial Cocktail added 1 Brando Werner used for (Verapomil to syringe Sofia Garcia RN procedure 2mg/Nitro field 400mcg/Heparin 1500units) 10:23:57 Fentanyl I.V. 50 mcg Brando Werner for sedation Sofia Garcia RN 10:24:13 Versed I.V. 1 mg Brando Werner for sedation Sofia Garcia RN 10:26:28 Fentanyl I.V. 50 mcg Brando Werner for sedation Sofia Garcia RN 10:26:33 Versed I.V. 1 mg Brando Werner for sedation Sofia Garcia RN 10:37:29 Heparin Bolus I.V. 4000 Brando Escobary for units Sofia Garcia RN anticoagulation Procedure Log Time Note 9:54:31 Alphonso Garcia RN sent for patient. Start room use. 9:54:32 Time tracking: Call back (After hours or weekends) 9:54:42 Plan of Care:Hemodynamics will remain stable., Cardiac rhythm will remain stable., Comfort level will be maintained., Respiratory function will remain adequate., Patient/ family verbilizes understanding of procedure., Procedure tolerated without complication., Recovers from procedure without complications.. 10:10:16 Patient received from PCU to CCL 1 Alert and oriented. Tansferred to table in Supine position. 10:10:16 Warm blankets applied, and troy hugger turned on for patient comfort. 10:10:17 Correct patient and procedure confirmed by team. 10:10:18 Signed procedure consent form obtained from patient. 10:10:19 ECG and BP/O2 sat monitors applied to patient. 10:10:20 Full Disclosure recording started 10:20:19 Oxygen 2 l/min etCO2 Nasal cannula was administered by Alphonso Garcia RN; Per physician; 10:20:29 Vital chart was started 10:20:31 Heparin Flush Bag (1000units/500ml NS) 2 bags added to field was administered by Alphonso Garcia RN; used for procedure; 10:20:39 0.9% NaCl 100 ml/hr I.V. was administered by Alphonso Garcia RN; Per physician; 10:20:48 Plavix 300 mg P.O. was administered by Alphonso Garcia RN; for antiplatelet therapy; 10:21:03 Zofran 4 mg I.V. was administered by Alphonso Garcia RN; Per physician; 10:21:10 Rhythm: sinus rhythm 10:21:12 Radial Cocktail (Verapomil 2mg/Nitro 400mcg/Heparin 1500units) 1 syringe added to field was administered by Alphonso Garcia RN; used for procedure; 10:21:56 H&P Date Dictated: 06/06/2018 ER History on chart.. 10:21:58 Pre-procedure instructions explained to patient. 10:21:58 Pre-op teaching completed and patient verbalized understanding. 10:22:02 Family in patients room. 10:22:04 Patient NPO since Midnight. 10:22:15 Is the patient allergic to Iodine/contrast media? No. 10:22:17 Is patient on blood thinner?Yes 10:22:35 PLAVIX LAST DOSE 06/05/18 10:22:37 Patient diabetic? No. 10:22:47 Previous problem with sedation/anesthesia? Yes N/V 10:22:48 Snore? Yes 10:23:09 Sleep apnea? No 10:23:11 Deviated septum? No 10:23:11 Opens mouth fully? Yes 10:23:12 Sticks out tongue? Yes 10:23:14 Airway obstruction? No ? 10:23:16 Dentures? No ? 10:23:20 Pre procedure: right dorsailis pedis pulse 2+ Normal; easily identifiable; not easily obliterated 10:23:22 Modified Ervin's test Ulnar < 7 seconds 10:23:23 Patient pain scale 0/10 ?. 10:23:30 IV patent on arrival in left forearm with 0.9% NaCl at O. 10:23:32 Lab results completed and on chart. 10:23:35 Right Radial & Right Groin area was prepped with chlora-prep and draped in sterile fashion 10:23:36 Alarms reviewed by R. N. 10:23:36 Sharps counted by scrub and verified by R.N. 10:23:37 Final Timeout: patient, procedure, and site verified with staff and physician. All members of the team are in agreement. 10:23:39 Right Radial site verified by team. 10:23:41 Physical assessment completed. ASA score P 2 - A patient with mild systemic disease as per Brando Black MD. 10::44 Sedation plan: IV Moderate Sedation Medication:Versed, Fentanyl 10:23:57 Fentanyl 50 mcg I.V. was administered by Alphonso Garcia RN; for sedation; 10:24:13 Versed 1 mg I.V. was administered by Alphonso Garcia RN; for sedation; 10:25:43 Zero performed for pressure channel P1 10:26:11 ACIST Syringe (33895) opened to sterile field. 10:26:11 Medline Cath Pack ([id number]) opened to sterile field. 10:26:16 Bag Decanter (2002S) opened to sterile field. 10:26:17 DIAGNOSTIC WIRE .035 260cm J wire (949218) opened to sterile field. 10:26:17 ACIST Hand Control (69949) opened to sterile field. 10:26:18 ACIST Manifold (10055) opened to sterile field. 10:26:18 Tegaderm 4 x 4 (1626W) opened to sterile field. 10:26:19 MBrace Wrist Support ([id number]) opened to sterile field. 10:26:20 SHEATH 6Fr Prelude Radial ([id number]) opened to sterile field. 10:26:23 Procedure started. 10:26:27 Local anesthetic to right radial artery with Lidocaine 2% by Brando Black MD.INITIAL ACCESS ONLY 10:26:28 Fentanyl 50 mcg I.V. was administered by Alphonso Garcia RN; for sedation; 10:26:33 Versed 1 mg I.V. was administered by Alphonso Garcia RN; for sedation; 10:28:22 A 6 Fr Short sheath was inserted into the Right Radial artery Unsuccessful puncture. 10:28:32 SHEATH Prelude 5Fr 0.035 (KJK-3L-48-035) opened to sterile field. 10:28:44 Use device set Multipack Set 10:28:46 DIAGNOSTIC Multipack 5Fr catheter set (DS0684) opened to sterile field. 10:29:47 Local anesthetic to right femoral artery with Lidocaine 2% by Brando Black MD.ADDITIONAL ACCESS 10:30:09 Baseline sample Acquired. 10:31:54 A 5 Fr sheath was inserted into the Right Femoral artery 10:33:03 A MULTIPACK Pigtail 5 Fr catheter was advanced over the wire and used for LV Angiography. 10:33:07 LV gram done using FLORES 10:33:08 LV hemodynamics recorded. 10:33:12 Injector settings: Ml/sec: 10., Volume: 20, 10:33:17 EF : 60 % 10:33:19 Catheter removed. 10:33:37 A MULTIPACK JL 4.0 5Fr catheter was advanced over the wire and used for Left Coronary Angiography. 10:34:11 Use device set TAU PCI 10:34:14 SHEATH Prelude 6Fr 0.035 (PEQ-3U-27-035) opened to sterile field. 10:34:18 INFLATOR Merit BasixCompak (HZ5359) opened to sterile field. 10:34:21 CHOICE PT Extra Support 182cm wire ([id number]) opened to sterile field. 10:34:28 Catheter removed. 10:34:34 A MULTIPACK 3DRC 5Fr catheter was advanced over the wire and used for Right Coronary Angiography. 10:35:27 Catheter removed. 10:35:42 Sheath upsized to a 6 Fr Short. 10:35:59 [place] IVUS Catheter (76063N) opened to sterile field. 10:37:04 GUIDE 6FR EBU 3.5 catheter ([id number]) opened to sterile field. 10:37:13 6 Fr EBU 3.5 guide catheter was inserted over the wire 10:37:29 Heparin Bolus 4000 units I.V. was administered by Alphonso Garcia RN; for anticoagulation; 10:37:47 CHOICE PT ES wire advanced. 10:38:37 IVUS catheter advanced over wire. 10:38:38 IVUS pass to Circ lesion performed. 10:39:30 IVUS catheter removed over wire. 10:39:36 Wire removed. 10:39:38 Guide catheter removed. 10:39:43 GUIDE 6FR AR 1.0 catheter (ZV7QA26) opened to sterile field. 10:40:25 6 Fr AR 1 guide catheter was inserted over the wire 10:40:49 CHOICE PT ES wire advanced. 10:42:59 Place stent Inflation Number: 1 A ANDREW RX 2.0 x 8 stent ([id number]) was prepped and advanced across the R PDA. The stent was deployed at 11 [place] for 0:07 (min:sec). 10:43:08 Inflation number: 2 The stent balloon was then re-inflated across the R PDA to 13 [place] for 0:06 (min:sec). 10:43:13 Inflation number: 3 The stent balloon was then re-inflated across the R PDA to 13 [place] for 0:03 (min:sec). 10:43:17 Stent catheter was removed intact over wire. 10:43:28 Wire removed. 10:43:29 Guide catheter removed. 10:43:46 Sheath removed intact; hemostasis achieved with Exoseal to the Right Femoral artery. 10:43:48 Procedure ended.(Physican Out) 10:44:54 Fluoroscopy time 04.00 minutes. 10:44:58 Flurop Dose total: 665 10:44:58 Fluoroscopy dose: 665 mGy 10:45:03 Contrast amount:Isovue 300 74ml. 10:45:04 Sharps counted by scrub and verified by R.N. 10:45:06 Insertion/operative site no bleeding no hematoma. 10:45:08 Post-op/insertion site Right Femoral artery dressed using a 4 x 4 and Tegaderm. 10:45:13 Post right femoral artery:stable, clean and dry 10:45:40 Post-op/insertion site Right Radial artery dressed using a Bandaid. 10:45:42 Post Procedure Pulses reassessed and unchanged 10:45:44 Post-procedure physical assessment completed. ASA score P 2 - A patient with mild systemic disease as per Brando Black MD. 10:45:46 Post procedure rhythm: unchanged. 10:45:49 Estimated blood loss: 10 ml 10:45:51 Post procedure instruction explained to patient.Patient verbalizes understanding. 10:45:51 Patient needs reinforcement of post procedure teaching. 10:46:07 Procedure type changed to Cath procedure, Diagnostic procedure, LHC, LHC w/Coronaries, FFR/IVUS, Intra-Coronary IVUS Initial, Sedation Charges, Moderate Sedation up to 15 minutes, PCI procedure, Coronary Stent, Coronary Stent Initial 10:46:38 See physician's report for complete and final results. 10:47:41 Procedure Complication : No complications 10:47:54 EXOSEAL 6Fr (EX600) opened to sterile field. 10:48:34 Procedure and supply charges have been captured, reviewed, submitted and are correct. 10:48:36 Vital chart was stopped 10:48:36 Report given to PCU. 10:48:46 Patient transfered to PCU with Bed. 10:48:54 Procedure ended. 10:48:54 Full Disclosure recording stopped 10:50:34 End room use (Document Last) Intervention Summary Intervention Notes Time ActionType Lesion and Equipment Used Action# Pressure Duration Attributes 10:42:59 Place stent R PDA ANDREW RX 2.0 x 1 11 00:08 8 stent ([id number]) 10:43:08 Reinflate R PDA ANDREW RX 2.0 x 2 13 00:06 stent 8 stent balloon ([id number]) 10:43:13 Reinflate R PDA ANDREW RX 2.0 x 3 13 00:03 stent 8 stent balloon ([id number]) Device Usage Item Name Manufacture Quantity Catalog Number Hospital Part Current Minimal Lot# / Charge Number Stock Stock Serial# Code ACIST Syringe Acist 1 22507 216266 344686 194538 20 (17745) Medical Systems Inc Medline Cath Cardinal 1 [id number] 708677 39835 528658 5 Splother ([id number]) Bag Decanter Microtek 1 2001S 965294 33251 596808 5 (2001S) Medical Inc. DIAGNOSTIC WIRE [address] [place] 1 294710 734160 742687 637454 30 .035 260cm J wire (609973) ACIST Hand Acist 1 05385 835128 232839 159370 5 Control (22096) [employer] Inc ACIST Manifold Acist 1 48892 536061 289802 334028 5 (43674) Medical Systems Inc Tegaderm 4 x 4 3M 1 1626W 445715 686062 116875 5 (1626W) MBrace Wrist Advanced 1 140-0250-00 328712 07075 330608 5 Support Vascular (276818298) Dynamics SHEATH 6Fr Merit 1 [id number] 543743 957621 157848 5 Prelude Radial Medical ([id number]) SHEATH Prelude Merit 1 GUN-8X-80-035 713192 353602 012681 5 5Fr 0.035 Medical (ZMQ-7V-01-035) DIAGNOSTIC Cardinal 1 TS5974 584127 53209 703525 30 Multipack 5Fr Health catheter set (XX6025) MULTIPACK Cardinal 1 163905 5 Pigtail 5 Fr Health catheter MULTIPACK JL Cardinal 1 673303 5 4.0 5Fr Health catheter SHEATH Prelude Merit 1 LHU-1Y-37-35 277167 3199661 871008 5 6Fr 0.035 Medical (VRC-0V-91-035) INFLATOR Merit Merit 1 KN9507 472495 125273 495995 15 PeekymaYek Mobile Medical (OQ7779) CHOICE PT Extra [place] 1 [id number] 738298 187431 784528 5 Support 182cm Scientific wire ([id number]) MULTIPACK 3DRC Cardinal 1 293899 5 5Fr catheter Health Em[place] Emmonak 1 05293X 671142 655497 065640 8 [place] IVUS Catheter (73870L) GUIDE 6FR EBU Medtronic 1 [id number] 765261 52659 380814 3 3.5 catheter (GR7LTZ66) GUIDE 6FR AR Medtronic 1 [id number] 494902 99080 861957 1 1.0 catheter (JY9ZN70) ANDREW RX 2.0 x 8 Medtronic 1 [id number] 484191 6629270 130198 5 [id number] stent ([id number]) EXOSEAL 6Fr Cardinal 1 EX600 507505 938247 962153 10 (EX600) Health Signature Audit [place] Stage Time Signature Unsigned Intra-Procedure 06/06/2018 Tonya 10:51:31 AM Counts RT(R) Signatures Monitor : Tonya Signature : Counts RT Date : Time : [facility] [address] [place] [address]
--- NOTE | ~2018-06-05 | DS ---
PATIENT:BUFFY MASON :59 MEDICAL RECORD: [id number] DISCHARGE SUMMARY ADMISSION DATE: 06/05/18 DISCHARGE DATE: 06/06/18 DIAGNOSES: 1. Unstable angina. 2. Coronary disease. 3. PTCA and stent, RCA. On this admission, Ms. Mason presents with unstable anginal symptomatology, found to have significant disease of the RCA, underwent successful PTCA and stent of the RCA. She was discharged home to continue her aspirin and Plavix. Follow up with cardiology associates in one month. TRANSINT:[id number] Voice Confirmation ID: [id number] DOCUMENT ID: [id number] JULIA FISHER MD at 1642 CC: [id number] DICTATION DATE: 06/06/18 1047 RN NEONATAL ICU: 06/06/18 1309 DEP CLI 06/06/[address] [address]
--- NOTE | ~2018-06-05 | OP ---
PATIENT NAME: BUFFY ROMERO MEDICAL RECORD: [id number] :59 LOCATION:D.OPS ADMISSION DATE: SURGEON: JULIA FSIHER MD DATE OF OPERATION: 06/06/2018 PROCEDURES: 1. PTCA and stent to the RCA. 2. Intravascular ultrasound. 3. Left heart catheterization. 4. Selective coronary angiography. 5. Left ventriculogram. INDICATIONS: Unstable angina and coronary artery disease. PROCEDURE IN DETAIL: After informed consent was obtained and after a detailed description of risks, benefits as well as alternative therapies, the patient elected to proceed with angiogram and angioplasty. The right femoral area was prepped and draped in normal sterile fashion. Right femoral artery was cannulated via modified Seldinger technique with placement of 6-Telugu sheath. All catheters exchanged through this sheath. FINDINGS: The left ventriculogram was performed in standard 30-degree FLORES view, reveals good cardiac wall motion throughout all segments. Overall ejection fraction estimated 60%. SELECTIVE CORONARY ANGIOGRAPHY: 1. Left main showed no significant angiographic disease. 2. Left anterior descending has moderate irregularities but no flow-limiting stenosis. 3. The left circumflex has previously placed stent. This is widely patent. There is an area of questionable stenosis proximal to the stent; however, this is by intravascular ultrasound was no greater than 40%. 4. The right coronary has previously placed stents, these are widely patent. There is an area of 80% stenosis in the PDA after the previously placed stents. PTCA STENT OF THE RIGHT CORONARY PDA: The stent used was a 2.0 x 8 mm [place]. Result was 0% residual stenosis. OVERALL IMPRESSION: Successful percutaneous transluminal angioplasty and stent of the right coronary artery going from 80% initial stenosis to 0% residual. TRANSINT:[id number] Voice Confirmation ID: [id number] DOCUMENT ID: [id number] JULIA FISHER MD at 1642 CC: [id number] DICTATION DATE: 06/06/18 10[address] HAND: 06/06/18 1206 DEP CLI 06/06/18 [place] [address] [place] [address]
[2018-06-05 10:45] LABS: BASOPHILS 0.4 % (0-2); EOSINOPHILS 2.9 % (0-7); HEMATOCRIT 37.5 % (36.0-48.0); HEMOGLOBIN 12.6 g/dL (12-16); IMMATURE GRANULOCYTES 0.7 % (0-5); LYMPHOCYTES 30.8 % (15-50); MCH 28.5 pg (26.0-34.0); MCHC 33.6 g/dL (31.0-37.0); MCV 84.8 fL (80.0-100.0); MEAN PLATELET VOLUME 9.2 fL (7.4-10.4); MONOCYTES 9.2 % (2-11); PLATELET COUNT 176 10x3/uL (130-400); RBC 4.42 10x6/uL (4.00-5.40); RDW 13.5 % (11.5-14.5); WBC 5.5 10x3/uL (4.8-10.8)
[2018-06-05 11:06] LABS: ALBUMIN 3.3 g/dL (3.4-5.0); ALKALINE PHOSPHATASE 92 U/L (46-116); ALT (SGPT) 25 U/L (10-68); BILIRUBIN - TOTAL 0.22 mg/dL (0.2-1.3); CALC OSMOLALITY 287 mosm/kg (275-300); CARBON DIOXIDE 30.6 mmol/L (21.0-32.0); CHLORIDE - SERUM 105 mmol/L (98-107); CREATININE - SERUM 0.7 mg/dL (0.6-1.3); GLUCOSE 111 mg/dL (74-106); POTASSIUM - SERUM 3.5 mmol/L (3.5-5.1); PROTEIN - SERUM 6.6 g/dL (6.4-8.2); SODIUM 143 mmol/L (136-145); UREA NITROGEN 17 mg/dL (7-18); eGFR NON AFRICAN AMERICAN 90 mL/min (90-120)
[2018-06-05 11:13] LABS: CKMB 0.6 U/L (0.0-3.6); CREATINE KINASE 66 UL (21-215); PRO BNP 204 pg/mL (0-125); TROPONIN-I < 0.017 ng/mL (0.000-0.060)
[2018-06-05] MEDS ORDERED: HYDROCHLOROTH12.5 M1 PO ×2 (14:46→14:47)
[2018-06-05 15:20] VITALS: BP 89/41
[2018-06-05 15:41] VITALS: BP 89/41; Ht 154.9 cm; Wt 93.2 kg
[2018-06-05 19:00] VITALS: BP 125/69
[2018-06-06 00:29] VITALS: BP 129/76
[2018-06-06 05:06] VITALS: BP 136/72
[2018-06-06 08:43] VITALS: BP 137/65
[2018-06-06 13:35] VITALS: BP 137/79
== END 2018-06-06 16:10 | disposition home or self-care (01) ==
LOC: D.OPS 09:53 → D.M2 09:53 → D.EDHOLD 09:53 → D.ER 09:53 → EDSTATUS 11:42 → D.EDHOLD 11:43 → D.M2 12:59 → D.OPS 06-06 16:10
PROVIDERS: Family Medicine
DX: I25.110 Atherosclerotic heart disease of native coronary artery with unstable angina pectoris (principal); I10 Essential (primary) hypertension; Z01.812 Encounter for preprocedural laboratory examination

== ENCOUNTER 2019-05-01 11:40 | Outpatient (CLI) | payer OTHER ==
[~2019-05-01] VITALS: Ht 154.9 cm; Wt 70.5 kg
--- NOTE | ~2019-05-01 | HEMODYNAMI ---
PATIENT:BUFFY ROMERO MEDICAL RECORD: [id number] : 59 LOCATION:[facility] D.2119 [facility]# [id number] ADMISSION DATE: 05/01/19 Generatedon:05/02/201914:28 Patient name: BUFFY ROMERO Patient #: [id number] SSN: [id number] : 1955 Date of study: 05/02/2019 Page: Of Hemodynamic Procedure Report Patient Data Patient Demographics Procedure consent was obtained First Name: BUFFY Gender: Female Last Name: NICK : 1955 [facility] Initial: EVELIN Age: 63 year(s) Patient #: [id number] Race: SSN: [id number] Additional ID: [id number] Contact details [address]: [address] [place] [address] COURT State: [place] City: [place] Zip code: [address] Past Medical History Allergies: No known allergies Admission Admission Data Admission Date: 05/01/2019 Admission Time: 11:40 Room #: D.2119 Lab Results Lab Result Date: 05/02/2019 Lab Result Time: 0:00 Biochemistry Name Units Result Min Max BUN mg/dl 12 --(-*--)-- 7 18 Creatinine mg/dl 0.6 --(*---)-- 0.6 1.3 CBC Name Units Result Min Max Hemoglobin g/dl 13.4 -*(----)-- 13.5 17.5 Procedure Procedure Types Cath Procedure Diagnostic Procedure LHC LHC w/Coronaries Sedation Charges Moderate Sedation up to 15 minutes PCI Procedure Coronary Stent Coronary Stent Initial Procedure Description Procedure Date Procedure Date: 05/02/2019 Procedure Start Time: 14:06 Procedure End Time: 14:26 Procedure Staff Name Function Elio Rodriguez MD Performing Physician Lupe Domínguez RT Monitor Juliano Hood RT Scrub Renetta Coleman RT Scrub Palak Jerry RN Nurse Procedure Data Cath Procedure Fluoroscopy Diagnostic fluoroscopy Total fluoroscopy Time: 2.9 time: 2.9 min min Diagnostic fluoroscopy Total fluoroscopy dose: 854 dose: 854 mGy mGy Contrast Material Contrast Material Type Amount (ml) Isovue 300 80 Entry Location Entry Primary Successful Side Size Upsize Upsize Entry Closure Burton ccessful Closure Location (Fr) 1 (Fr) 2 (Fr) Remarks Device Remarks Radial Right 6 Fr Mechanical artery Short Compression Estimated blood loss: 5 ml Diagnostic catheters Device Type Used For End Catheter Placement DIAGNOSTIC Canon 110cm 5 Multi-vessel Fr catheter ([id number]) Angiography Procedure Complications No complications Procedure Medications Medication Administration Route Dosage Oxygen etCO2 Nasal cannula 2 l/min Lidocaine 2% added to field 20 Heparin Flush Bag added to field 2 bags (1000units/500ml NS) 0.9% NaCl I.V. 100 ml/hr Radial Cocktail I.A. 1 syringe (Verapamil 2mg/Nitro 400mcg/Heparin 1500units) Versed I.V. 2 mg Fentanyl I.V. 50 mcg Versed I.V. 1 mg Fentanyl I.V. 50 mcg Heparin Bolus I.V. 4000 units Versed I.V. 1 mg Plavix P.O. 75 mg Hemodynamics Rest HGB: 13.4 (g/dl) Heart Rate: 62 (bpm) Pressure Samples Time Site Value (mmHg) Purpose Heart Use Rate(bpm) 14:12 LV 34/0,2 Snapshot 81 Gradients Valve Time Site Site Mean SEP/DFP Peak To Heart Use 1 2 (mmHg) (sec/min) Peak Rate (mmHg) (bpm) Aortic 14:12 LV AO 85 Snapshots Pre Cath Intra NCS Post Cath Vital Signs Time Heart Resp SPO2 etCO2 NIBP (mmHg) Rhythm Pain Sedation Rate (ipm) (%) (mmHg) Status Level (bpm) 13:51:33 65 15 97 0 135/82(110) NSR 0 (11) 10(A) , No pain 13:55:33 65 14 98 0 146/86(110) NSR 0 (11) 10(A) , No pain 13:59:33 65 14 96 43.3 133/81(105) NSR 0 (11) 10(A) , No pain 14:03:30 61 18 94 39.5 114/77(96) NSR 0 (11) 10(A) , No pain 14:07:28 64 15 93 42.5 112/71(84) NSR 0 (11) 9(A) , No pain 14:11:31 80 14 95 42.6 116/59(79) NSR 0 (11) 9(A) , No pain 14:15:33 72 10 94 38.8 116/67(84) NSR 0 (11) 9(A) , No pain 14:19:35 75 11 94 42.6 120/68(90) NSR 0 (11) 9(A) , No pain 14:23:41 74 12 95 44.1 112/61(85) NSR 0 (11) 10(A) , No pain Medications Time Medication Route Dose Verified Delivered Reason Not es Effectiveness by by 14:00:43 Oxygen etCO2 2 l/min Elio Cid used for Nasal St Chema Jerry RN procedure cannula 14:02:50 Lidocaine 2% added 20ml Elio Elio for local to vial [facility] anesthetic field MD CARDOSO 14:04:52 Heparin Flush added 2 bags Elio Ballard used for Bag to [facility] procedure (1000units/500ml field MD CARDOSO NS) 14:05:09 Versed I.V. 2 mg Elio Cid for sedation St Chema Jerry RN, MD 14:05:15 0.9% NaCl I.V. 100 Elio Cid Per physician ml/hr St Chema Jerry RN, MD 14:05:17 Fentanyl I.V. 50 mcg Elio Dexterie for sedation St Chema Jerry RN, MD 14:05:29 Radial Cocktail I.A. 1 Elio Ballard for (Verapamil syringe [facility] vasodilation 2mg/Nitro MD CARDOSO 400mcg/Heparin 1500units) 14:10:08 Versed I.V. 1 mg Elio Dexterie for sedation St Chema Jerry RN, MD 14:10:12 Fentanyl I.V. 50 mcg Elio Dexterie for sedation St Chema Jerry RN, MD 14:18:36 Heparin Bolus I.V. 4000 Elio Cid for gigi ified units St Chema Jerry RN anticoagulation with dr MD sanchez 14:21:50 Versed I.V. 1 mg Elio Dexterie for sedation St Chema Jerry RN, MD 14:26:55 Plavix P.O. 75 mg Elio Dex[address]ie for St Chema Jerry RN antiplatelet therapy Procedure Log Time Note 13:34:28 Diagnostic Cath Status : Elective 13:35:37 Juliano Hood RT(R) sent for patient. Start room use. 13:35:38 Time tracking: Regular hours (M-F 7:00 - 5:00) 13:35:42 Plan of Care:Hemodynamics will remain stable., Cardiac rhythm will remain stable., Comfort level will be maintained., Respiratory function will remain adequate., Patient/ family verbilizes understanding of procedure., Procedure tolerated without complication., Recovers from procedure without complications.. 13:44:29 Patient received from PCU to [facility] 2 Alert and oriented. Tansferred to table in Supine position. 13:44:31 Warm blankets applied, and troy hugger turned on for patient comfort. 13:44:31 Correct patient and procedure confirmed by team. 13:44:33 Signed procedure consent form obtained from patient. 13:44:33 ECG and BP/O2 sat monitors applied to patient. 13:50:40 Vital chart was started 13:50:41 Baseline sample Acquired. 13:50:47 Rhythm: sinus rhythm 13:50:48 Full Disclosure recording started 13:50:53 H&P Date Dictated: 05/02/2019 New H&P dictated by physician.. 13:50:54 Pre-procedure instructions explained to patient. 13:50:55 Pre-op teaching completed and patient verbalized understanding. 13:50:57 Family in waiting room. 13:50:58 Patient NPO since Midnight. 13:50:59 Is the patient allergic to Iodine/contrast media? No. 13:51:00 Was the patient premedicated? No 13:51:02 Is patient on blood thinner?Yes 13:51:13 ACC The patient was administered the following blood thiners within the last 24 hours: ACCPlavix 13:51:15 Patient diabetic? No. 13:51:20 Previous problem with sedation/anesthesia? Yes nausea 13:51:22 Snore? Yes 13:51:23 Sleep apnea? No 13:51:24 Deviated septum? No 13:51:25 Opens mouth fully? Yes 13:51:28 Sticks out tongue? Yes 13:51:31 Airway obstruction? No ? 13:51:33 Dentures? No ? 13:51:36 Pre procedure: right dorsailis pedis pulse 2+ Normal; easily identifiable; not easily obliterated 13:51:38 Pre procedure: left dorsailis pedis pulse 2+ Normal; easily identifiable; not easily obliterated 13:51:41 Patient pain scale 0/10 ?. 13:52:13 Lab results completed and on chart. 13:52:19 Right Radial & Right Groin area was prepped with chlora-prep and draped in sterile fashion 13:52:20 Alarms reviewed by R. N. 13:52:20 Sharps counted by scrub and verified by R.N. 13:52:24 Physician arrived 13:52:24 --------ALL STOP TIME OUT------ 13:52:24 Final Timeout: patient, procedure, and site verified with staff and physician. All members of the team are in agreement. 13:52:27 Right Radial & Right Groin site verified by team. 13:52:30 Fire Safety Assessment: A--An alcohol-based skin anteseptic being used preoperatively., C--Open oxygen or nitrous oxide is being used., D--An ESU, laser, or fiber-optic light is being used. 13:52:33 Physical assessment completed. ASA score P 2 - A patient with mild systemic disease as per Elio Rodriguez MD. 13:52:51 1) 90+ Normal kidney functon but urine findings or structural abnormalities or genetic trait point to kidney disease. 13:53:20 Maximum allowable contrast does (3.7 X eGFR X 0.75)249 ml. 13:53:23 Sedation plan: IV Moderate Sedation Medication:Versed, Fentanyl 13:53:39 IV started by Palak Jerry RN inleft hand with a 22 gauge IV catheter with 0.9% NaCl at KVO. 13:53:46 Use device set Radial Dx or PCI 13:53:47 ACIST Syringe (24046) opened to sterile field. 13:53:48 Medline Cath Pack ([id number]) opened to sterile field. 13:53:48 Bag Decanter () opened to sterile field. 13:53:49 ACIST Hand Control (37684) opened to sterile field. 13:53:49 ACIST Manifold (85255) opened to sterile field. 13:53:50 Tegaderm 4 x 4 (1626W) opened to sterile field. 13:53:51 MBrace Wrist Support ([id number]) opened to sterile field. 13:53:54 SHEATH 6FR RAIN (1686559) opened to sterile field. 13:53:55 EMERALD Guide Wire (434-722) opened to sterile field. 13:56:17 Lab Result : Creatinine 0.6 mg/dl 13:56:17 Lab Result : BUN 12 mg/dl 13:56:17 Lab Result : Hemoglobin 13.4 g/dl 14:00:43 Oxygen 2 l/min etCO2 Nasal cannula was administered by Palak Jerry RN; used for procedure; 14:02:50 Lidocaine 2% 20ml vial added to field was administered by Elio Rodriguez MD; for local anesthetic; 14:04:52 Heparin Flush Bag (1000units/500ml NS) 2 bags added to field was administered by Elio Rodriguez MD; used for procedure; 14:05:09 Versed 2 mg I.V. was administered by Palak Jerry RN; for sedation; 14:05:15 0.9% NaCl 100 ml/hr I.V. was administered by Palak Jerry RN; Per physician; 14:05:17 Fentanyl 50 mcg I.V. was administered by Palak Jerry RN; for sedation; 14:05:29 Radial Cocktail (Verapamil 2mg/Nitro 400mcg/Heparin 1500units) 1 syringe I.A. was administered by Elio Rodriguez MD; for vasodilation; 14:06:28 Procedure started. 14:06:31 Local anesthetic to right radial artery with Lidocaine 2% by Elio Rodriguez MD.INITIAL ACCESS ONLY 14:06:41 A 6 Fr Short sheath was inserted into the Right Radial artery 14:10:08 Versed 1 mg I.V. was administered by Palak Jerry RN; for sedation; 14:10:12 Fentanyl 50 mcg I.V. was administered by Palak Jerry RN; for sedation; 14:10:52 A DIAGNOSTIC Canon 110cm 5 Fr catheter ([id number]) was advanced over the wire and used for Multi-vessel Angiography. 14:12:09 LV hemodynamics recorded. 14:12:10 LV gram done using FLORES 14:12:12 Injector settings: Ml/sec: 5, Volume: 15, 14:12:31 EF : 55 % 14:13:02 LCA angiography performed. 14:13:06 Injector settings: Ml/sec: 3, Volume: 6, 14:14:16 RCA angiography performed. 14:14:21 Injector settings: Ml/sec: 3, Volume: 6, 14:15:43 Catheter removed. 14:15:47 Proceeding to intervention. 14:16:13 INFLATOR Merit BasixCompak (XW6463) opened to sterile field. 14:16:15 WHISPER 300cm guide wire ([id number]) opened to sterile field. 14:16:27 GUIDE 6FR XBLAD 3.5 catheter ([id number]) opened to sterile field. 14:16:58 6 Fr xblad 3.5 guide catheter was inserted over the wire 14:17:05 whisper wire advanced. 14:18:36 Heparin Bolus 4000 units I.V. was administered by Palak Jerry RN; for anticoagulation; verified with dr sanchez 14:20:48 Wire advanced across lesion. 14:21:50 Versed 1 mg I.V. was administered by Palak Jerry RN; for sedation; 14:23:13 Place stent Inflation Number: 1 A ANDREW RX 3.0 x 18 stent ([id number]) was prepped and advanced across the Mid CX 80. The stent was deployed at 14 [place] for 0:30 (min:sec) . 14:23:28 TR BAND Standard ([id number]) opened to sterile field. 14:23:41 Stent catheter was removed intact over wire. 14:23:41 Wire removed. 14:23:42 Guide catheter removed. 14:23:49 Sheath removed intact; hemostasis achieved with Mechanical Compression to the Right Radial artery. 14:23:51 Procedure ended.(Physican Out) 14:24:17 Fluoroscopy time 02.90 minutes. 14:24:21 Flurop Dose total: 854 14:24:21 Fluoroscopy dose: 854 mGy 14:24:57 Contrast amount:Isovue 300 80ml. 14:24:59 Sharps counted by scrub and verified by R.N. 14:25:03 TR band inflated with 10cc of air. 14:25:05 Insertion/operative site no bleeding no hematoma. 14:25:08 Post right radial artery:stable 14:25:10 Post Procedure Pulses reassessed and unchanged 14:25:12 Post procedure rhythm: unchanged. 14:25:17 Estimated blood loss: 5 ml 14:25:18 Post procedure instruction explained to patient.Patient verbalizes understanding. 14:25:18 Patient needs reinforcement of post procedure teaching. 14:25:31 Procedure type changed to Cath procedure, Diagnostic procedure, LHC, LHC w/Coronaries, Sedation Charges, Moderate Sedation up to 15 minutes, PCI procedure, Coronary Stent, Coronary Stent Initial 14:25:32 Procedure and supply charges have been captured, reviewed, submitted and are correct. 14:25:38 Procedure Complication : No complications 14::41 Vital chart was stopped 14::41 See physician's report for complete and final results. 14:25:59 Report given [address] [facility]. 14:26:01 Patient transfered to [facility] with Stretcher. 14:26:10 Procedure ended. 14:26:10 Full Disclosure recording stopped 14::18 ACC-PCI Only Patient was given prescriptions, or instructed by Elio Rodriguez MD to start/continue the following medications upon discharge: Plavix 14:26:19 End room use (Document Last) 14:26:55 Plavix 75 mg P.O. was administered by Palak Jerry RN; for antiplatelet therapy; Intervention Summary Intervention Notes Time ActionType Lesion and Equipment Used Action# Pressure Duration Attributes 14:23:13 Place stent Mid CX ANDREW RX 3.0 x 1 14 00:30 18 stent ([id number]) Device Usage Item Name Manufacture Quantity Catalog [facility] Lot# / Number Charge Number Stock Stock Serial# Code ACIST Syringe Acist 1 82322 703088 860305 493648 20 (92266) Medical Systems Inc Medline Cath Medline 1 [id number] 807255 40277 080422 5 Pack ([id number]) Bag Decanter Microtek 1 2001S 816769 43667 302589 5 (2001S) Medical Inc. ACIST Hand Acist 1 36595 156315 776426 056414 5 Control Medical (30338) Systems Inc ACIST Manifold Acist 1 64234 621021 139616 202041 5 (92058) Medical Systems Inc Tegaderm 4 x 4 3M 1 1626W 122151 486911 028712 5 (1626W) MBrace Wrist Advanced 1 140-0250-00 819955 92330 121595 5 Support Vascular ([id number]) Dynamics SHEATH 6FR Cardinal 1 7429033 676388 0647937 496427 5 RAIN (5041633) Health EMERALD Guide Cardinal 1 502-455 410791 640306 063200 5 Wire (502455) Health DIAGNOSTIC Terumo 1 40-8413 669103 191840 984230 5 Canon 110cm 5 Fr catheter (187485) INFLATOR Merit Merit 1 LV3112 887174 170911 394661 15 BasixCompak Medical (RB5670) WHISPER 300cm Tamayo 1 [id number] 905815 278918 399347 5 guide wire Vascular (0613134KQ) GUIDE 6FR Cardinal 1 [id number] 549217 812354 348384 10 XBLAD 3.5 Health catheter (08647277) ANDREW RX 3.0 x Medtronic 1 [id number] 146766 5565080 203872 5 [id number] 18 stent ([id number]) TR BAND Terumo 1 [id number] 174681 909389 402879 40 Standard ([id number]) Signature Audit [place] Stage Time Signature Unsigned Intra-Procedure 05/02/2019 Lupe Domínguez 2:28:47 PM RT(R) Signatures Performing Physician : Signature : Elio Rodriguez MD Date : Time : Monitor : Lupe Domínguez RT Signature : Date : Time : Nurse : Palak Jerry RN Signature : Date : Time : [facility] [address] [place] [address]
--- NOTE | ~2019-05-01 | OP ---
PATIENT NAME: BUFFY ROMERO MEDICAL RECORD: [id number] :59 LOCATION:D.M2 D.2119 ADMISSION DATE: SURGEON: ROME PETERS MD DATE OF OPERATION: 05/02/2019 PROCEDURE: Left heart catheterization, selective coronary angiography, right radial approach. CATHETERS: A 5-Dominican sheath, 5/4 left and right Carm[place], 5/4 pig. The procedure was well tolerated. We proceeded immediately to PTCA and stenting of circumflex. FINDINGS: Left ventriculography in 30-degree FLORES view: Normal wall motion and normal systolic function. CORONARY ANATOMY: LEFT MAIN: Left main is free of disease. LAD: Free of disease in the diagonal system. CIRCUMFLEX: Codominant system. Circumflex has end stent restenosis of about 80%. The stent itself has no evidence of in-stent restenosis. RIGHT CORONARY: Area of previous stenting is widely patent with no evidence of progression of disease. PLAN: Intervention to the circumflex momentarily. DESCRIPTION OF PROCEDURE: Using indwelling irregular sheath, a XB LAD 3.5 guiding catheter provided good guide catheter support followed by 300 cm Whisper wire. Stent deployed was 3.0 x 18 mm [place] drug-eluting stent up to 14 atmospheres for 45 seconds. Final angiography shows excellent resolution of 80% stenosis with no significant residual. PAULA 3 flow was 3 throughout the procedure. Sheath was closed with TR band. Heparin was used during the case. TRANSINT:[id number] Voice Confirmation ID: [id number] DOCUMENT ID: [id number] ROME PETERS MD CC: [id number] DICTATION DATE: 05/02/19 1432 SOD STRIPPER: 05/02/19 1607 REG [facility] [address] [place] [address]
[~2019-05-01 11:40] MED LIST changes: +HYDROCHLOROTH12.5 M1 PO
[2019-05-01 12:12] LABS: BASOPHILS 0.1 % (0-2); EOSINOPHILS 2.5 % (0-7); HEMATOCRIT 39.4 % (36.0-48.0); HEMOGLOBIN 13.4 g/dL (12-16); IMMATURE GRANULOCYTES 0.6 % (0-5); LYMPHOCYTES 35.8 % (15-50); MCH 28.3 pg (26.0-34.0); MCV 83.1 fL (80.0-100.0); MEAN PLATELET VOLUME 9.4 fL (7.4-10.4); MONOCYTES 9.4 % (2-11); NEUTROPHILS 51.6 % (40-80); PLATELET COUNT 184 10x3/uL (130-400); RBC 4.74 10x6/uL (4.00-5.40); RDW 13.2 % (11.5-14.5); WBC 6.8 10x3/uL (4.8-10.8)
[2019-05-01 12:30] LABS: ALBUMIN 3.7 g/dL (3.4-5.0); ALKALINE PHOSPHATASE 95 U/L (46-116); ALT (SGPT) 29 U/L (10-68); CALC OSMOLALITY 273 mosm/kg (275-300); CALCIUM 8.7 mg/dL (8.5-10.1); CARBON DIOXIDE 27.9 mmol/L (21.0-32.0); CHLORIDE - SERUM 100 mmol/L (98-107); CREATININE - SERUM 0.7 mg/dL (0.6-1.3); GLUCOSE 91 mg/dL (74-106); POTASSIUM - SERUM 3.6 mmol/L (3.5-5.1); PROTEIN - SERUM 7.3 g/dL (6.4-8.2); SODIUM 137 mmol/L (136-145); UREA NITROGEN 13 mg/dL (7-18); eGFR NON AFRICAN AMERICAN 90 mL/min (90-120)
[2019-05-01 12:34] LABS: CKMB 0.5 U/L (0.0-3.6); CREATINE KINASE 69 UL (21-215); TROPONIN-I < 0.017 ng/mL (0.000-0.060)
[2019-05-01 12:35] LABS: APTT 26.2 SECONDS (22.8-39.4); INR 0.99 (0.85-1.17); PROTIME 12.6 SECONDS (11.6-15.0)
--- NOTE | 2019-05-01 14:25 | NUR ---
RECEIVED PT TO ROOM 2118 VIA W/C AAOX4 RESP UNLABORED SKIN W/D TELEMETRY APPLIE SR RATE 64 VSS NAD NOTED AT THIS TIME PT DENIES CHEST PAIN
[2019-05-01 14:52] VITALS: BP 106/66; Ht 154.9 cm; Wt 70.5 kg
[2019-05-01 16:29] VITALS: BP 107/48
[2019-05-01 16:54] LABS: CALC OSMOLALITY 276 mosm/kg (275-300); CALCIUM 8.3 mg/dL (8.5-10.1); CHLORIDE - SERUM 102 mmol/L (98-107); CREATININE - SERUM 0.6 mg/dL (0.6-1.3); GLUCOSE 84 mg/dL (74-106); POTASSIUM - SERUM 3.4 mmol/L (3.5-5.1); SODIUM 139 mmol/L (136-145); UREA NITROGEN 12 mg/dL (7-18); eGFR NON AFRICAN AMERICAN > 90 mL/min (90-120)
[2019-05-01 20:00] VITALS: BP 114/53; BP 142/91
[2019-05-02] VITALS: BP 119/65
[2019-05-02 04:13] VITALS: BP 118/55
--- NOTE | 2019-05-02 05:43 | NUR ---
PT HAS RESTED THIS NIGHT. NPO SINCE MIDNIGHT. AM HIBICLENS PERFORMED FOR HEART CATH TODAY. BED LOW,CALL LIGHT IN REACH. CPOC.
--- NOTE | 2019-05-02 07:48 | NUR ---
NPO FOR LHC. REFUSES SCDS. CALL LIGHT IN REACH. WILL CONT. PLAN OF CARE.
[2019-05-02 09:12] VITALS: BP 130/73
--- NOTE | 2019-05-02 13:30 | NUR ---
PRE-OPS GIVEN. TO MANAGER SOFTWARE BY BED.
--- NOTE | 2019-05-02 14:51 | NUR ---
BACK FROM LARGE ANIMAL VETERINARIAN. VS WNL. RIGHT WRIST STABLE WITH TR BAND INTACT. WILL CONT. PLAN OF CARE.
[2019-05-02] MEDS ORDERED: ASPIRIN81 MG PO (14:52)
--- NOTE | 2019-05-02 17:28 | NUR ---
TR BAND DCD WITHOUT BLEEDING OR HEMATOMA NOTED. WILL MONITOR.
--- NOTE | 2019-05-02 18:03 | NUR ---
IV AND TELEMETRY DCD. DC PLANS GIVEN. UNDERSTANDING VOICED. ESCORTED TO CAR BY W/C.
== END 2019-05-02 18:04 | disposition home or self-care (01) ==
LOC: D.OPS 11:40 → D.ER 11:40 → D.M2 11:40 → EDSTATUS 13:38 → D.M2 13:58 → D.OPS 05-02 18:04
PROVIDERS: Emergency Medicine; ATTEND Internal Medicine Cardiovascular Disease
DX: I25.119 Atherosclerotic heart disease of native coronary artery with unspecified angina pectoris (principal); Z95.5 Presence of coronary angioplasty implant and graft; Z01.812 Encounter for preprocedural laboratory examination

== ENCOUNTER → 2020-12-20 19:58 | Outpatient (CLI) | payer OTHER ==
[2019-05-01 14:52] VITALS: BMI 29.3
[~2020-12-20 19:58] MED LIST changes: +ASPIRIN81 MG PO
== END | disposition home or self-care (01) ==
LOC: D.MAMMO 14:45
PROVIDERS: ATTEND Family Medicine
DX: Z12.31 Encounter for screening mammogram for malignant neoplasm of breast (principal)

== ENCOUNTER 2021-01-05 12:37 | Emergency (ER) | payer OTHER ==
[~2021-01-05] VITALS: Ht 154.9 cm; Wt 93.2 kg
[2021-01-05 12:43] VITALS: BP 134/74; Ht 154.9 cm; Wt 93.2 kg
[2021-01-05] MEDS ORDERED: HYDROCODON-ACE1 EAC7 PO (14:11)
== END 2021-01-05 14:19 | disposition home or self-care (01) ==
LOC: D.ER 12:37
DX: S40.011A Contusion of right shoulder, initial encounter (principal); S40.021A Contusion of right upper arm, initial encounter; M79.10 Myalgia, unspecified site; M79.601 Pain in right arm; M25.511 Pain in right shoulder; I10 Essential (primary) hypertension; K21.9 Gastro-esophageal reflux disease without esophagitis; W01.0XXA Fall on same level from slipping, tripping and stumbling without subsequent striking against object, initial encounter; Y93.9 Activity, unspecified; Y92.9 Unspecified place or not applicable

== ENCOUNTER → 2021-03-06 13:02 | Outpatient (CLI) | payer OTHER ==
[2021-01-05 12:43] VITALS: BMI 38.8
[~2021-03-06 13:02] MED LIST changes: +HYDROCODON-ACE1 EAC7 PO
== END | disposition home or self-care (01) ==
LOC: D.US 13:02
PROVIDERS: ATTEND Family Medicine
DX: R22.31 Localized swelling, mass and lump, right upper limb (principal)